=== PATIENT | male | born 1980 | race Caucasian/White ===

== ENCOUNTER 2018-07-17 12:34 | Observation (INO) | payer OTHER ==
[2018-07-17] MEDS ORDERED: BABY ASPIRIN 81 MG CHEW PO ONE (12:44)
[2018-07-17] MEDS ORDERED: BABY ASPIRIN 81 MG CHEW ONE (12:50)
--- NOTE | 2018-07-17 12:51 | ERPHSYRPT ---
- History of Present Illness Time Seen by Provider: 07/17/18 12:46 Historian: patient Exam Limitations: no limitations Physician History: 37-year-old white male with history of diabetes adult onset, kidney stones and hypercholesterolemia. Patient arrives with complaints of aching substernal chest pain radiating up to his neck and left arm began 3040 minutes while helping his boss move furniture around his boss's house. Patient states the pain was initially a 10 out of 10 it is now 2 out of 10 he states he is getting markedly better with rest. He states that he did have shortness of breath diaphoresis and nausea. Past medical history includes type 2 diabetes mellitus, kidney stones, hypercholesterolemia. Past surgical history includes cholecystectomy and surgery on his left index finger. Social history denies tobacco alcohol or illicit drug use. Timing/Duration: today (30-40 minutes prior to arrival) Activities at Onset: activity (Moving furniture around) Quality: aching Location: substernal Chest Pain Radiation: neck, arm (left arm) Severity of Pain-Max: moderate Severity of Pain-Current: mild Modifying Factors: Improves With: rest (pain is improved after rest) Associated Symptoms: nausea, shortness of breath, diaphoresis, No vomiting, No palpitations, No heartburn, No abdominal pain, No cough, No hurts to breathe, No chills, No fever, No fatigue, No weakness, No swelling/lump in chest, No syncope, No headache, No dizziness, No edema, No back pain Prior Chest Pain/Cardiac Workup: no prior chest pain Nitro Today/Relief: no nitro taken today Aspirin Treatment Today: 81 mg x 4, provided by ED Allergies/Adverse Reactions: No Known Drug Allergies Allergy (Verified 07/17/18 12:50) Home Medications: Pravastatin Sodium 10 mg PO DAILY 07/17/18 [History] - Review of Systems Constitutional: No Fever, No Chills Eyes: No Symptoms Ears, Nose, & Throat: No Symptoms Respiratory: No Cough, No Dyspnea Cardiac: Chest Pain, Other (diaphoresis) Abdominal/Gastrointestinal: Nausea, No Abdominal Pain, No Vomiting, No Diarrhea , No Constipation, No Hematemesis, No Hematochezia, No Melena Genitourinary Symptoms: No Dysuria Musculoskeletal: No Symptoms, No Back Pain, No Neck Pain Skin: No Rash Neurological: No Dizziness, No Focal Weakness, No Sensory Changes Psychological: No Symptoms Endocrine: No Symptoms All Other Systems: Reviewed and Negative - Past Medical History Cardiac History: High Cholesterol Endocrine Medical History: Diabetes Type II - Past Surgical History Gastrointestinal: Cholecystectomy Musculoskeletal: Other (left index finger surgery) - Nursing Vital Signs Nursing Vital Signs: Initial Vital Signs Temperature 97.6 F 07/17/18 12:37 Pulse Rate 77 07/17/18 12:37 Respiratory Rate 14 07/17/18 12:37 Blood Pressure 153/104 07/17/18 12:37 O2 Sat by Pulse Oximetry 98 07/17/18 12:37 Pain Scale Pain Intensity 3 - Physical Exam General Appearance: mild distress, alert, other (well-developed somewhat obese white male, alert oriented 3, pleasant and cooperative to examination) Eye Exam: PERRL/EOMI, eyes nml inspection Ears, Nose, Throat Exam: normal ENT inspection, moist mucous membranes Neck Exam: normal inspection, non-tender, supple, full range of motion Respiratory Exam: normal breath sounds, lungs clear, No respiratory distress Cardiovascular Exam: regular rate/rhythm, normal heart sounds, normal peripheral pulses, capillary refill <2 sec, No murmur, No friction rub, No gallop, No tachycardia, No bradycardia, No irregular, No capillary refill >3 sec , No edema Gastrointestinal/Abdomen Exam: soft, normal bowel sounds, No tenderness, No distention, No mass, No guarding, No rebound, No organomegaly Back Exam: normal inspection, No CVA tenderness, No vertebral tenderness Extremity Exam: normal inspection, normal range of motion Neurologic Exam: alert, oriented x 3, cooperative, documentation spec II-XII nml as tested, normal mood/affect, sensation nml, No motor deficits Skin Exam: normal color, warm, dry SpO2 Interpretation: normal - Course Nursing assessment & vital signs reviewed: Yes EKG Interpreted by Me: RATE (74 bpm), NORMAL AXIS, Other (EKG: Sinus rhythm, 74 bpm, normal axis, no acute ST or T wave changes, normal EKG) - Radiology Exams Chest X-ray Interpretation: Interpreted by me (no acute disease process noted) Ordered Tests: Active Orders 24 hr Category Date Time Status Accucheck STAT Care 07/17/18 12:52 Active Associate Data Scientist STAT Care 07/17/18 12:45 Active EKG-ER Only STAT Care 07/17/18 12:44 Active IV Insertion STAT Care 07/17/18 12:44 Active Pulse Oximetry (ED) STAT Care 07/17/18 12:44 Active CHEST 1 VIEW (PORTABLE) Stat Exams 07/17/18 12:45 Taken AMYLASE Routine Lab 07/17/18 12:50 Completed CBC W DIFF Stat Lab 07/17/18 12:50 Completed CMP Routine Lab 07/17/18 12:50 Completed D-DIMER QUANTITATION Stat Lab 07/17/18 12:50 Completed LIPASE Routine Lab 07/17/18 12:50 Completed PROTIME WITH INR Stat Lab 07/17/18 12:50 Completed PTT Stat Lab 07/17/18 12:50 Completed TROPONIN Q3H Lab 07/17/18 12:50 Completed TROPONIN Q3H Lab 07/17/18 15:45 Ordered TROPONIN Q3H Lab 07/17/18 18:45 Ordered TROPONIN Q3H Lab 07/17/18 21:45 Ordered TROPONIN Q3H Lab 07/18/18 00:45 Ordered Medication Summary Discontinued Medications Generic Name Dose Route Start Last Admin Trade Name Freq PRN Reason Stop Dose Admin Aspirin 324 mg 07/17/18 12:44 07/17/18 12:51 Baby Aspirin 81 Mg Chew PO 07/17/18 12:45 324 mg STAT ONE Administration Aspirin Confirm 07/17/18 12:50 Baby Aspirin 81 Mg Chew Administered 07/17/18 12:51 Dose 324 mg .ROUTE .STK-MED ONE Sodium Chloride 1,000 mls @ 999 mls/hr 07/17/18 13:22 Sodium Chloride 0.9% 1000 Ml IV 07/17/18 14:22 .Q1H1M STA Lab/Rad Data: Laboratory Result Diagrams 07/17/18 12:50 07/17/18 12:50 Laboratory Results 07/17/18 07/17/18 07/17/18 Range/Units 12:50 12:50 12:50 WBC 10.1 (4.0-10.5) K/mm3 RBC 5.26 (4.1-5.6) M/mm3 Hgb 14.8 (12.5-18.0) gm/dl Hct 45.6 (42-50) % MCV 86.7 (78-100) fl MCH 28.1 (26-32) pg MCHC 32.5 (32-36) g/dl RDW 13.6 (11.5-14.0) % Plt Count 194 (150-450) K/mm3 MPV 9.9 H (6-9.5) fl Gran % 52.0 (36.0-66.0) % Eos # (Auto) 0.20 (0-0.5) Absolute Lymphs (auto) 3.83 (1.0-4.6) Absolute Monos (auto) 0.79 (0.0-1.3) Lymphocytes % 38.0 (24.0-44.0) % Monocytes % 7.8 (0.0-12.0) % Eosinophils % 2.0 (0.00-5.0) % Basophils % 0.2 (0.0-0.4) % Absolute Granulocytes 5.23 (1.4-6.9) Basophils # 0.02 (0-0.4) PT 11.5 (8.83-12.87) SECONDS INR 0.99 (0.8-3.0) APTT 34.5 (24.1-36.1) SECONDS D-Dimer 286 (215-500) ng/mL Sodium 136 L (137-145) mmol/L Potassium 4.0 (3.5-5.1) mmol/L Chloride 103 (98-107) mmol/L Carbon Dioxide 25 (22-30) mmol/L Anion Gap 12.5 (5-15) MEQ/L BUN 16 (9-20) mg/dL Creatinine 0.83 (0.66-1.25) mg/dL Estimated GFR > 60.0 ML/MIN Glucose 162 H (74-106) mg/dL Calcium 9.2 (8.4-10.2) mg/dL Total Bilirubin 0.30 (0.2-1.3) mg/dL AST 41 (17-59) U/L ALT 64 H (0-50) U/L Alkaline Phosphatase 121 (38-126) U/L Troponin I 0.013 (0.000-0.034) ng/mL Serum Total Protein 7.1 (6.3-8.2) g/dL Albumin 4.3 (3.5-5.0) g/dL Amylase 69 (30-110) U/L Lipase 114 (23-300) U/L - Progress Progress: improved Air Movement: fair Progress Note: 07/17/18 13:31 37-year-old white male with history of diabetes mellitustype 2, hypercholesterolemia Patient arrives with complaint of 30-40 minutes of anterior chest pain substernal aching radiating to his neck and left arm associated with shortness of breath diaphoresis and nausea began while the patient was moving furniture at his boss's house. On arrival with rest patient was feeling better and had rated the pain at about 2 it is now going away. Patient arrives with an EKG normal sinus rhythm 74 bpm normal axis no acute ST or T wave changes are noted patient with normal d-dimer normal troponin chemistry is essentially normal with the exception of a mildly elevated glucose and a sodium of 136 chest x-ray is unremarkable. Patient does state that he has a very strong family history of heart problems he is feeling better. I've discussed the patient's case and the clinical and laboratory findings with Dr. Mejia will place patient on observation. Patient has been given 324 mg of aspirin here in the emergency room and is feeling better. . . - Departure Time of Disposition: 13:34 Departure Disposition: Observation Clinical Impression: Chest pain Qualifiers: Chest pain type: unspecified Qualified Code(s): R07.9 - Chest pain, unspecified Condition: Fair Critical Care Time: No
[2018-07-17 12:54] LABS: BASOPHIL % 0.2 % (0.0-0.4); Basophil (Absolute #) 0.02 (0-0.4); Granulocyte Absolute (ANC) 5.23 (1.4-6.9); Hematocrit 45.6 % (42-50); Hemoglobin 14.8 gm/dl (12.5-18.0); Lymphocyte (Absolute #) 3.83 (1.0-4.6); Mean Cell Volume 86.7 fl (78-100); Mean Corpuscular Hemoglobin 28.1 pg (26-32); Mean Corpuscular Hgb Concent. 32.5 g/dl (32-36); Mean Platelet Volume 9.9 fl (6-9.5); Monocyte (Absolute #) 0.79 (0.0-1.3); Monocytes % 7.8 % (0.0-12.0); Platelet Count 194 K/mm3 (150-450); Red Blood Count 5.26 M/mm3 (4.1-5.6); Red Cell Distribution Width 13.6 % (11.5-14.0); White Blood Count 10.1 K/mm3 (4.0-10.5)
[2018-07-17 13:04] LABS: INR 0.99 (0.8-3.0)
[2018-07-17 13:06] LABS: PTT 34.5 SECONDS (24.1-36.1)
[2018-07-17 13:19] LABS: ALBUMIN 4.3 g/dL (3.5-5.0); ALKALINE PHOSPHATASE 121 U/L (38-126); AMYLASE 69 U/L (30-110); ANION GAP 12.5 MEQ/L (5-15); BLOOD UREA NITROGEN 16 mg/dL (9-20); CHLORIDE 103 mmol/L (98-107); Calcium 9.2 mg/dL (8.4-10.2); Carbon Dioxide 25 mmol/L (22-30); Creatinine 1 0.83 mg/dL (0.66-1.25); Glucose 162 mg/dL (74-106); LIPASE 114 U/L (23-300); SGOT/AST 41 U/L (17-59); SGPT/ALT 64 U/L (0-50); SODIUM 136 mmol/L (137-145); TROPONIN 0.013 ng/mL (0.000-0.034); Total Protein 7.1 g/dL (6.3-8.2)
[2018-07-17] MEDS ORDERED: Sodium Chloride 0.9% 1000 ML 1,000 ML IV STA (13:22)
[2018-07-17] MEDS ORDERED: Sodium Chloride 0.9% 1000 ML 1,000 ML ONE (13:32)
[2018-07-17] MEDS ORDERED: Zofran 4 MG/2 ML VIAL IV PRN (14:18)
[2018-07-17] MEDS ORDERED: MORPHINE SULFATE 2 MG INJ IV PRN (14:18)
--- NOTE | 2018-07-17 18:03 | XRAY ---
Indication: Chest pain. Comparison: None Portable chest demonstrates normal heart, lungs, and bony thorax.
--- NOTE | 2018-07-17 19:18 | PCM.HP ---
History of Present Illness - Chief Complaint Chief Complaint: CHEST PAIN History of Present Illness: is a 37 year old male who presented to the ER after an acute onset of chest pain. His pain was a tight/sqeezing heaviness in the chest that started while moving furniture. He was diaphoretic and short of breath with the pain, it resolved with rest. He has no cardiac history, no recent illness. Has had a diagnosis of diabetes in the past and later told he was not a diabetic, he is obese and has an extensive family history of cardiac disease and a personal history of smoking tobacco. - Review of Systems Constitutional: No Fever, No Chills Respiratory: No Cough, No Short Of Breath Cardiac: Chest Pain Abdominal/Gastrointestinal: No Abdominal Pain, No Nausea, No Vomiting, No Diarrhea Genitourinary Symptoms: No Dysuria Skin: No Rash All Other Systems: Reviewed and Negative Medications & Allergies Home Medications: Home Medication List Pravastatin Sodium 10 mg PO HS 07/17/18 [History Confirmed 07/17/18] Allergies/Adverse Reactions: Allergies Allergy/AdvReac Type Severity Reaction Status Date / Time No Known Drug Allergies Allergy Verified 07/17/18 12:50 - Past Medical History Past Medical History: Yes Cardiac History: High Cholesterol Endocrine Medical History: Diabetes Type II - Past Surgical History Past Surgical History: Yes GI Surgical History: Cholecystectomy Musculskeletal Surgical Hx: Other Other Surgical History: finger reconstruction as a child - Social History Smoking Status: Former smoker Exposure to second hand smoke: No Alcohol: None Drug Use: none - Physical Exam Vital Signs: Vital Signs - 24 hr Temp Pulse Pulse Resp BP Pulse Ox 07/17/18 16:00 97.8 F 78 18 131/63 93 L 07/17/18 14:27 97.5 F 74 74 H 160/84 96 07/17/18 13:35 72 16 155/94 96 07/17/18 12:48 98 07/17/18 12:37 97.6 F 77 77 14 153/104 98 General Appearance: no apparent distress, alert, obese Neurologic Exam: alert, oriented x 3, cooperative, normal mood/affect, nml cerebellar function, nml station & gait, sensation nml, No motor deficits Respiratory Exam: normal breath sounds, lungs clear, No respiratory distress Cardiovascular Exam: regular rate/rhythm, normal heart sounds, normal peripheral pulses Gastrointestinal/Abdomen Exam: soft, normal bowel sounds, No tenderness, No mass Extremity Exam: normal inspection, normal range of motion, pelvis stable Skin Exam: normal color, warm, dry, No rash Results - Labs Lab/Micro Results: Accuchecks Accucheck Value: 221 Accucheck Value: 171 Lab Results-Last 24 Hours 07/17/18 07/17/18 07/17/18 Range/Units 12:35 12:50 12:50 WBC 10.1 (4.0-10.5) K/mm3 RBC 5.26 (4.1-5.6) M/mm3 Hgb 14.8 (12.5-18.0) gm/dl Hct 45.6 (42-50) % MCV 86.7 (78-100) fl MCH 28.1 (26-32) pg MCHC 32.5 (32-36) g/dl RDW 13.6 (11.5-14.0) % Plt Count 194 (150-450) K/mm3 MPV 9.9 H (6-9.5) fl Gran % 52.0 (36.0-66.0) % Eos # (Auto) 0.20 (0-0.5) Absolute Lymphs (auto) 3.83 (1.0-4.6) Absolute Monos (auto) 0.79 (0.0-1.3) Lymphocytes % 38.0 (24.0-44.0) % Monocytes % 7.8 (0.0-12.0) % Eosinophils % 2.0 (0.00-5.0) % Basophils % 0.2 (0.0-0.4) % Absolute Granulocytes 5.23 (1.4-6.9) Basophils # 0.02 (0-0.4) PT 11.5 (8.83-12.87) SECONDS INR 0.99 (0.8-3.0) APTT 34.5 (24.1-36.1) SECONDS D-Dimer 286 (215-500) ng/mL Sodium (137-145) mmol/L Potassium (3.5-5.1) mmol/L Chloride (98-107) mmol/L Carbon Dioxide (22-30) mmol/L Anion Gap (5-15) MEQ/L BUN (9-20) mg/dL Creatinine (0.66-1.25) mg/dL Estimated GFR ML/MIN Glucose (74-106) mg/dL Hemoglobin A1c 7.71 H (4.5-6.0) % Calcium (8.4-10.2) mg/dL Total Bilirubin (0.2-1.3) mg/dL AST (17-59) U/L ALT (0-50) U/L Alkaline Phosphatase (38-126) U/L Troponin I (0.000-0.034) ng/mL Serum Total Protein (6.3-8.2) g/dL Albumin (3.5-5.0) g/dL Amylase (30-110) U/L Lipase (23-300) U/L 07/17/18 07/17/18 Range/Units 12:50 15:40 WBC (4.0-10.5) K/mm3 RBC (4.1-5.6) M/mm3 Hgb (12.5-18.0) gm/dl Hct (42-50) % MCV (78-100) fl MCH (26-32) pg MCHC (32-36) g/dl RDW (11.5-14.0) % Plt Count (150-450) K/mm3 MPV (6-9.5) fl Gran % (36.0-66.0) % Eos # (Auto) (0-0.5) Absolute Lymphs (auto) (1.0-4.6) Absolute Monos (auto) (0.0-1.3) Lymphocytes % (24.0-44.0) % Monocytes % (0.0-12.0) % Eosinophils % (0.00-5.0) % Basophils % (0.0-0.4) % Absolute Granulocytes (1.4-6.9) Basophils # (0-0.4) PT (8.83-12.87) SECONDS INR (0.8-3.0) APTT (24.1-36.1) SECONDS D-Dimer (215-500) ng/mL Sodium 136 L (137-145) mmol/L Potassium 4.0 (3.5-5.1) mmol/L Chloride 103 (98-107) mmol/L Carbon Dioxide 25 (22-30) mmol/L Anion Gap 12.5 (5-15) MEQ/L BUN 16 (9-20) mg/dL Creatinine 0.83 (0.66-1.25) mg/dL Estimated GFR > 60.0 ML/MIN Glucose 162 H (74-106) mg/dL Hemoglobin A1c (4.5-6.0) % Calcium 9.2 (8.4-10.2) mg/dL Total Bilirubin 0.30 (0.2-1.3) mg/dL AST 41 (17-59) U/L ALT 64 H (0-50) U/L Alkaline Phosphatase 121 (38-126) U/L Troponin I 0.013 0.130 H* (0.000-0.034) ng/mL Serum Total Protein 7.1 (6.3-8.2) g/dL Albumin 4.3 (3.5-5.0) g/dL Amylase 69 (30-110) U/L Lipase 114 (23-300) U/L Accuchecks Accucheck Value: 221 Accucheck Value: 171 - Radiology Impressions Radiology Exams & Impressions: Radiology Procedures Category Date Time Status CHEST 1 VIEW (PORTABLE) Stat Exams 07/17/18 12:45 Completed - Other Procedures and Tests Respiratory Therapy 07/17/18 20:00 EKG Q8H 07/18/18 05:00 EKG DAILY 07/19/18 05:00 EKG DAILY 07/20/18 05:00 EKG DAILY Assessment/Plan (1) Chest pain Current Visit: Yes Status: Acute Qualifiers: Chest pain type: unspecified Qualified Code(s): R07.9 - Chest pain, unspecified Assessment & Plan: EKG shows no obvious current of injury, there is some minor suspicious ST change present V1,2,3 with no reciprocal changes. patient with multiple risk factors and elevated troponin. I discussed the case with Dr Andrew Marroquin recreation counselor for [facility] and he is aware, advised to continue current therapy as discussed. if any clinical status changes or signficant further elevation of troponin will transfer to [place] under his care. Code(s): R07.9 - CHEST PAIN, UNSPECIFIED (2) Diabetes mellitus Current Visit: Yes Status: Acute Assessment & Plan: will add low dose insulin sliding scale coverage, low dose tan inhibitor Code(s): E11.9 - TYPE 2 DIABETES MELLITUS WITHOUT COMPLICATIONS (3) Hyperlipidemia Current Visit: Yes Status: Acute Code(s): E78.5 - HYPERLIPIDEMIA, UNSPECIFIED
[2018-07-17] MEDS ORDERED: ENOXAPARIN SODIUM SQ ONE (19:28)
[2018-07-17] MEDS ORDERED: NovoLOG Insulin SQ PRN (19:34)
[2018-07-17] MEDS: Coreg 3.125 MG PO SCH (21:01)
[2018-07-17] MEDS: Sodium Chloride 0.9% 10 ML FLUSH Syringe IV SCH (21:04)
[2018-07-17] MEDS ORDERED: Ecotrin 325 MG PO SCH (22:00)
[2018-07-17] MEDS ORDERED: Zocor 10MG PO SCH (22:00)
[2018-07-17] MEDS ORDERED: ZOCOR 20MG PO SCH (22:00)
[2018-07-18 01:30] LABS: BASOPHIL % 0.3 % (0.0-0.4); Basophil (Absolute #) 0.03 (0-0.4); Eosinophil % 2.1 % (0.00-5.0); Eosinophil (Absolute #) 0.25 (0-0.5); Granulocyte Absolute (ANC) 4.69 (1.4-6.9); Granulocytes % 39.1 % (36.0-66.0); Hematocrit 44.8 % (42-50); Hemoglobin 14.5 gm/dl (12.5-18.0); Lymphocyte (Absolute #) 6.29 (1.0-4.6); Lymphocytes % 52.6 % (24.0-44.0); Mean Cell Volume 86.8 fl (78-100); Mean Corpuscular Hemoglobin 28.1 pg (26-32); Mean Corpuscular Hgb Concent. 32.4 g/dl (32-36); Monocytes % 5.9 % (0.0-12.0); Platelet Count 199 K/mm3 (150-450); Red Blood Count 5.16 M/mm3 (4.1-5.6); Red Cell Distribution Width 13.6 % (11.5-14.0)
[2018-07-18 01:44] LABS: ALKALINE PHOSPHATASE 109 U/L (38-126); ANION GAP 11.4 MEQ/L (5-15); BLOOD UREA NITROGEN 15 mg/dL (9-20); CHLORIDE 106 mmol/L (98-107); Calcium 8.9 mg/dL (8.4-10.2); Carbon Dioxide 24 mmol/L (22-30); Creatinine 1 0.79 mg/dL (0.66-1.25); Glucose 104 mg/dL (74-106); Potassium 3.8 mmol/L (3.5-5.1); SGOT/AST 36 U/L (17-59); SGPT/ALT 60 U/L (0-50); SODIUM 138 mmol/L (137-145); Total Protein 6.7 g/dL (6.3-8.2)
[2018-07-18 04:16] VITALS: O2SAT 95
[2018-07-18] MEDS: Sodium Chloride 0.9% 10 ML FLUSH Syringe IV SCH (05:42)
[2018-07-18 06:28] LABS: Risk Ratio 9.1
[2018-07-18 07:29] VITALS: BP 111/62; PULSE 68
--- NOTE | 2018-07-18 08:15 | PCM.DS ---
Discharge Summary Date of Admission: 07/17/18 14:16 Admitting Physician: NUHA KERR Primary Care Provider: FIOR SMITH Allergies Allergies No Known Drug Allergies Allergy (Verified 07/17/18 12:50) Hospital Summary - Hospital Course Hospital Course: patient was admitted following an episode of chest pain that occurred with exertion while moving furniture. he developed a minimal elevation of troponin but had no chest pain after admission. multiple risk factors including newly discovered diabetes. - Vitals & Intake/Output Vital Signs: Vital Signs Temperature 98.1 F 07/18/18 07:28 Pulse Rate 68 07/18/18 07:28 Respiratory Rate 18 07/18/18 07:28 Blood Pressure 111/62 07/18/18 07:28 O2 Sat by Pulse Oximetry 95 07/18/18 07:28 Intake & Output: Intake & Output 07/15/18 07/16/18 07/17/18 07/18/18 11:59 11:59 11:59 11:59 Intake Total 840 Balance 840 Weight 120.9 kg - Lab Result Diagrams: 07/18/18 01:06 07/18/18 01:06 Lab Results-Last 24 Hrs: Accuchecks Date 07/17/18 Time 21:00 Accucheck Value: 161 Accucheck Value: 221 Accucheck Value: 171 Lab Results-Last 24 Hours 07/17/18 07/17/18 07/17/18 Range/Units 12:35 12:50 12:50 WBC 10.1 (4.0-10.5) K/mm3 RBC 5.26 (4.1-5.6) M/mm3 Hgb 14.8 (12.5-18.0) gm/dl Hct 45.6 (42-50) % MCV 86.7 (78-100) fl MCH 28.1 (26-32) pg MCHC 32.5 (32-36) g/dl RDW 13.6 (11.5-14.0) % Plt Count 194 (150-450) K/mm3 MPV 9.9 H (6-9.5) fl Gran % 52.0 (36.0-66.0) % Eos # (Auto) 0.20 (0-0.5) Absolute Lymphs (auto) 3.83 (1.0-4.6) Absolute Monos (auto) 0.79 (0.0-1.3) Lymphocytes % 38.0 (24.0-44.0) % Monocytes % 7.8 (0.0-12.0) % Eosinophils % 2.0 (0.00-5.0) % Basophils % 0.2 (0.0-0.4) % Absolute Granulocytes 5.23 (1.4-6.9) Basophils # 0.02 (0-0.4) PT 11.5 (8.83-12.87) SECONDS INR 0.99 (0.8-3.0) APTT 34.5 (24.1-36.1) SECONDS D-Dimer 286 (215-500) ng/mL Sodium (137-145) mmol/L Potassium (3.5-5.1) mmol/L Chloride (98-107) mmol/L Carbon Dioxide (22-30) mmol/L Anion Gap (5-15) MEQ/L BUN (9-20) mg/dL Creatinine (0.66-1.25) mg/dL Estimated GFR ML/MIN Glucose (74-106) mg/dL Hemoglobin A1c 7.71 H (4.5-6.0) % Calcium (8.4-10.2) mg/dL Total Bilirubin (0.2-1.3) mg/dL AST (17-59) U/L ALT (0-50) U/L Alkaline Phosphatase (38-126) U/L Troponin I (0.000-0.034) ng/mL Serum Total Protein (6.3-8.2) g/dL Albumin (3.5-5.0) g/dL Triglycerides (30-150) mg/dL Cholesterol (50-200) mg/dL LDL Cholesterol (30-100) mg/dL HDL Cholesterol (40-60) mg/dL Heart Disease Risk Ratio Amylase (30-110) U/L Lipase (23-300) U/L 07/17/18 07/17/18 07/17/18 Range/Units 12:50 15:40 18:37 WBC (4.0-10.5) K/mm3 RBC (4.1-5.6) M/mm3 Hgb (12.5-18.0) gm/dl Hct (42-50) % MCV (78-100) fl MCH (26-32) pg MCHC (32-36) g/dl RDW (11.5-14.0) % Plt Count (150-450) K/mm3 MPV (6-9.5) fl Gran % (36.0-66.0) % Eos # (Auto) (0-0.5) Absolute Lymphs (auto) (1.0-4.6) Absolute Monos (auto) (0.0-1.3) Lymphocytes % (24.0-44.0) % Monocytes % (0.0-12.0) % Eosinophils % (0.00-5.0) % Basophils % (0.0-0.4) % Absolute Granulocytes (1.4-6.9) Basophils # (0-0.4) PT (8.83-12.87) SECONDS INR (0.8-3.0) APTT (24.1-36.1) SECONDS D-Dimer (215-500) ng/mL Sodium 136 L (137-145) mmol/L Potassium 4.0 (3.5-5.1) mmol/L Chloride 103 (98-107) mmol/L Carbon Dioxide 25 (22-30) mmol/L Anion Gap 12.5 (5-15) MEQ/L BUN 16 (9-20) mg/dL Creatinine 0.83 (0.66-1.25) mg/dL Estimated GFR > 60.0 ML/MIN Glucose 162 H (74-106) mg/dL Hemoglobin A1c (4.5-6.0) % Calcium 9.2 (8.4-10.2) mg/dL Total Bilirubin 0.30 (0.2-1.3) mg/dL AST 41 (17-59) U/L ALT 64 H (0-50) U/L Alkaline Phosphatase 121 (38-126) U/L Troponin I 0.013 0.130 H* 0.144 H* (0.000-0.034) ng/mL Serum Total Protein 7.1 (6.3-8.2) g/dL Albumin 4.3 (3.5-5.0) g/dL Triglycerides (30-150) mg/dL Cholesterol (50-200) mg/dL LDL Cholesterol (30-100) mg/dL HDL Cholesterol (40-60) mg/dL Heart Disease Risk Ratio Amylase 69 (30-110) U/L Lipase 114 (23-300) U/L 07/17/18 07/18/18 07/18/18 Range/Units 21:58 01:06 01:06 WBC 12.0 H (4.0-10.5) K/mm3 RBC 5.16 (4.1-5.6) M/mm3 Hgb 14.5 (12.5-18.0) gm/dl Hct 44.8 (42-50) % MCV 86.8 (78-100) fl MCH 28.1 (26-32) pg MCHC 32.4 (32-36) g/dl RDW 13.6 (11.5-14.0) % Plt Count 199 (150-450) K/mm3 MPV 10.0 H (6-9.5) fl Gran % 39.1 (36.0-66.0) % Eos # (Auto) 0.25 (0-0.5) Absolute Lymphs (auto) 6.29 H (1.0-4.6) Absolute Monos (auto) 0.70 (0.0-1.3) Lymphocytes % 52.6 H (24.0-44.0) % Monocytes % 5.9 (0.0-12.0) % Eosinophils % 2.1 (0.00-5.0) % Basophils % 0.3 (0.0-0.4) % Absolute Granulocytes 4.69 (1.4-6.9) Basophils # 0.03 (0-0.4) PT (8.83-12.87) SECONDS INR (0.8-3.0) APTT (24.1-36.1) SECONDS D-Dimer (215-500) ng/mL Sodium (137-145) mmol/L Potassium (3.5-5.1) mmol/L Chloride (98-107) mmol/L Carbon Dioxide (22-30) mmol/L Anion Gap (5-15) MEQ/L BUN (9-20) mg/dL Creatinine (0.66-1.25) mg/dL Estimated GFR ML/MIN Glucose (74-106) mg/dL Hemoglobin A1c (4.5-6.0) % Calcium (8.4-10.2) mg/dL Total Bilirubin (0.2-1.3) mg/dL AST (17-59) U/L ALT (0-50) U/L Alkaline Phosphatase (38-126) U/L Troponin I 0.120 H* 0.103 H* (0.000-0.034) ng/mL Serum Total Protein (6.3-8.2) g/dL Albumin (3.5-5.0) g/dL Triglycerides (30-150) mg/dL Cholesterol (50-200) mg/dL LDL Cholesterol (30-100) mg/dL HDL Cholesterol (40-60) mg/dL Heart Disease Risk Ratio Amylase (30-110) U/L Lipase (23-300) U/L 07/18/18 07/18/18 Range/Units 01:06 05:35 WBC (4.0-10.5) K/mm3 RBC (4.1-5.6) M/mm3 Hgb (12.5-18.0) gm/dl Hct (42-50) % MCV (78-100) fl MCH (26-32) pg MCHC (32-36) g/dl RDW (11.5-14.0) % Plt Count (150-450) K/mm3 MPV (6-9.5) fl Gran % (36.0-66.0) % Eos # (Auto) (0-0.5) Absolute Lymphs (auto) (1.0-4.6) Absolute Monos (auto) (0.0-1.3) Lymphocytes % (24.0-44.0) % Monocytes % (0.0-12.0) % Eosinophils % (0.00-5.0) % Basophils % (0.0-0.4) % Absolute Granulocytes (1.4-6.9) Basophils # (0-0.4) PT (8.83-12.87) SECONDS INR (0.8-3.0) APTT (24.1-36.1) SECONDS D-Dimer (215-500) ng/mL Sodium 138 (137-145) mmol/L Potassium 3.8 (3.5-5.1) mmol/L Chloride 106 (98-107) mmol/L Carbon Dioxide 24 (22-30) mmol/L Anion Gap 11.4 (5-15) MEQ/L BUN 15 (9-20) mg/dL Creatinine 0.79 (0.66-1.25) mg/dL Estimated GFR > 60.0 ML/MIN Glucose 104 (74-106) mg/dL Hemoglobin A1c (4.5-6.0) % Calcium 8.9 (8.4-10.2) mg/dL Total Bilirubin 0.30 (0.2-1.3) mg/dL AST 36 (17-59) U/L ALT 60 H (0-50) U/L Alkaline Phosphatase 109 (38-126) U/L Troponin I (0.000-0.034) ng/mL Serum Total Protein 6.7 (6.3-8.2) g/dL Albumin 4.0 (3.5-5.0) g/dL Triglycerides 416 H (30-150) mg/dL Cholesterol 210 H (50-200) mg/dL LDL Cholesterol 127 H (30-100) mg/dL HDL Cholesterol 23 L (40-60) mg/dL Heart Disease Risk Ratio 9.1 Amylase (30-110) U/L Lipase (23-300) U/L Micro Results-Entire Visit: Accuchecks Date 07/17/18 Time 21:00 Accucheck Value: 161 Accucheck Value: 221 Accucheck Value: 171 - Radiology Exams Ordered Rad Exams-Entire Visit: Radiology Procedures Category Date Time Status CHEST 1 VIEW (PORTABLE) Stat Exams 07/17/18 12:45 Completed - Procedures and Test Procedures and Tests throughout Hospitalization: Therapy Orders & Screens 07/17/18 20:00 EKG Q8H Comment: Diagnosis: CHEST PAIN 07/18/18 05:00 EKG DAILY Comment: Diagnosis: CHEST PAIN 07/19/18 05:00 EKG DAILY Comment: Diagnosis: CHEST PAIN 07/20/18 05:00 EKG DAILY Comment: Diagnosis: CHEST PAIN Discharge Exam General Appearance: no apparent distress, alert, obese Neurologic Exam: alert, oriented x 3 Skin Exam: normal color, warm, dry Neck Exam: normal inspection, non-tender, supple, full range of motion Respiratory Exam: normal breath sounds, lungs clear, No respiratory distress Cardiovascular Exam: regular rate/rhythm, normal heart sounds Gastrointestinal/Abdomen Exam: soft, No tenderness, No mass Extremity Exam: normal inspection, normal range of motion Final Diagnosis/Problem List - Final Discharge Diagnosis/Problem (1) Chest pain Current Visit: Yes Status: Acute Assessment & Plan: case has been discussed with Dr Thorpe of [facility], since patient has been pain-free, has no acute EKG findings and minimally elevated troponin will continue beta sudhakar, aspirin, statin and treat diabetes. patient will f/ u with him as an outpatient. strongly encouraged complete cessation of smoking (2) Diabetes mellitus Current Visit: Yes Status: Acute Assessment & Plan: home on po metformin, a1c 7.7% diagnostic of type 2 diabetes (3) Hyperlipidemia Current Visit: Yes Status: Acute Assessment & Plan: change from pravachol to atorvastatin, moderate intensity statin indicated with lipid profile and multiple risk factors - Discharge Disposition: Home, Self-Care Condition: Good Prescriptions: New Atorvastatin Calcium 40 mg PO DAILY #30 tablet Carvedilol 3.125 mg [Coreg 3.125 MG] 3.125 mg PO BID #60 tablet Aspirin EC 81 mg [Ecotrin 81 mg] 81 mg PO DAILY #30 tablet.ec Metformin HCl 500 mg PO BID #60 tablet Discontinued Pravastatin Sodium 10 mg PO HS Follow up with: FIOR SMITH NP [Primary Care Provider] - 1 Week TONYA THORPE MD [NON-STAFF PHY W/O PRIVILEGES] - 1 Week
[2018-07-18] MEDS: Coreg 3.125 MG PO SCH (09:33)
[2018-07-18] MEDS ORDERED: ECOTRIN 81 MG PO SCH (10:00)
[2018-07-18] MEDS ORDERED: Zestril 5 MG PO SCH (10:00)
== END 2018-07-18 10:16 | disposition home or self-care (01) ==
LOC: ED 12:34 → MED SURG 14:16
PROVIDERS: ADMIT Family Medicine; ATTEND Family Medicine
DX: R07.9 Chest pain, unspecified (principal); E11.9 Type 2 diabetes mellitus without complications; Z79.4 Long term (current) use of insulin; E78.5 Hyperlipidemia, unspecified
CPT/HCPCS: 36000; 36415; 71045; 80053; 80061; 82150; 82962; 83036; 83690; 83721; 84484; 85025; 85379; 85610; 85730; 93005; 93041; 93268; 96360; 99285; J1650; A9270-GY; G0378

== ENCOUNTER 2020-02-23 20:47 | Emergency (ER) | payer OTHER ==
--- NOTE | 2020-02-23 21:33 | ERPHSYRPT ---
- History of Present Illness Time Seen by Provider: 02/23/20 21:00 Historian: patient Patient Subjective Stated Complaint: pt states that numbness began thursday, pt states that he called bottle house pumper and bottle house pumper advise to come and get checked out, pt states that he has a stent in the LAD, pt states that numbness starts at shoulder and travels down to hand, pt states that numbness is getting worse Triage Nursing Assessment: pt ambulated into the er, pt is axo x3, pt has hx of [place], c/o numbness to rt hand and rt arm, strengths equal bilateral, pupils 3 mm and PERRL, NIH 0, clear lung sounds, vitals wnl Physician History: Patient is a 39-year-old male with a history of LAD cardiac stent placed 1.5 years ago presents to our ED with numbness and tingling of his right arm for the past 5 days. Patient had a cardiac stress test approximately 2 months ago. At that time patient was experiencing the same symptoms. Patient called his ca rdiologist, Dr. Marroquin who advised patient come to our ED for evaluation. Symptoms are intermittent. No specific worsening or improving factors. No neck pain. No nausea vomiting or diaphoresis. Symptoms are moderate in intensity. Patient advises staff that at the time of this catheterization 1.5 years ago his other coronary arteries were approximately 70% obstructed. No fever. No cough. Patient voices no other complaints at this time. Patient is currently on Brilinta. However he has not been taking his blood pressure medication as he ran out. Timing/Duration: day(s) (5) Activities at Onset: other (Symptoms occur intermittently at rest and during activity.) Quality: aching Location: other (Symptoms occur at the right) Chest Pain Radiation: no radiation ( upper extremity.) Severity of Pain-Max: moderate Severity of Pain-Current: mild Modifying Factors: Improves With: nothing Associated Symptoms: No nausea, No vomiting, No palpitations, No heartburn, No shortness of breath, No hurts to breathe, No chills, No fatigue, No dizziness Nitro Today/Relief: no nitro taken today Aspirin Treatment Today: no aspirin today Allergies/Adverse Reactions: clopidogrel [From Plavix] Allergy (Mild, Verified 02/23/20 21:26) Itching Home Medications: Empagliflozin/Metformin HCl [Synjardy Xr 25-1,000 mg Tablet] 1 tab PO DAILY 02/23/20 [History] Ezetimibe 10 mg PO DAILY 02/23/20 [History] Lisinopril/Hydrochlorothiazide [Lisinopril-Hctz 20-12.5 mg Tab] 1 tab PO DAILY 02/23/20 [History] Semaglutide [Ozempic] 1 mg SQ WEEKLY 02/23/20 [History] Ticagrelor [Brilinta] 60 mg PO BID 02/23/20 [History] Urea 1 unit TOP BID 02/23/20 [History] Hx Tetanus, Diphtheria Vaccination/Date Given: No (unknown) Hx Influenza Vaccination/Date Given: No Hx Pneumococcal Vaccination/Date Given: No Travel Risk - International Travel Have you traveled outside of the country in past 3 weeks: No - Coronavirus Screening Are you exhibiting any of the following symptoms?: No Close contact with a COVID-19 positive Pt in past 14-21 Days: No - Review of Systems Constitutional: No Symptoms, No Fever, No Chills Eyes: No Symptoms Ears, Nose, & Throat: No Symptoms Respiratory: No Symptoms, No Cough, No Dyspnea Cardiac: No Symptoms, No Chest Pain, No Edema, No Syncope Abdominal/Gastrointestinal: No Symptoms, No Abdominal Pain, No Nausea, No Vomiting, No Diarrhea Genitourinary Symptoms: No Symptoms, No Dysuria Musculoskeletal: No Symptoms, No Back Pain, No Neck Pain Skin: No Symptoms, No Rash Neurological: No Symptoms, No Dizziness, No Focal Weakness, No Sensory Changes Psychological: No Symptoms Endocrine: No Symptoms Hematologic/Lymphatic: No Symptoms Immunological/Allergic: No Symptoms All Other Systems: Reviewed and Negative - Past Medical History Pertinent Past Medical History: Yes Cardiac History: High Cholesterol, Hypertension, Myocardial Infarction ([place]) Endocrine Medical History: Diabetes Type II - Past Surgical History Past Surgical History: Yes Cardiac: Cardiac Catheterization, Cardiac Stent Gastrointestinal: Cholecystectomy Musculoskeletal: Other Other Surgical History: finger reconstruction as a child - Social History Smoking Status: Former smoker Exposure to second hand smoke: No Drug Use: none Patient Lives Alone: No - Nursing Vital Signs Nursing Vital Signs: Initial Vital Signs Temperature 98.3 F 02/23/20 20:55 Pulse Rate 85 02/23/20 20:55 Respiratory Rate 16 02/23/20 20:55 Blood Pressure 135/83 02/23/20 20:55 O2 Sat by Pulse Oximetry 99 07/09/20 20:55 Pain Scale Pain Intensity 0 - Physical Exam General Appearance: no apparent distress, alert Eye Exam: PERRL/EOMI, eyes nml inspection Ears, Nose, Throat Exam: normal ENT inspection, moist mucous membranes Neck Exam: normal inspection, non-tender, supple, full range of motion Respiratory Exam: normal breath sounds, lungs clear, No respiratory distress Cardiovascular Exam: regular rate/rhythm, normal heart sounds Gastrointestinal/Abdomen Exam: soft, normal bowel sounds, No tenderness, No mass Back Exam: normal inspection, normal range of motion, No CVA tenderness, No vertebral tenderness Extremity Exam: normal inspection, normal range of motion Neurologic Exam: alert, oriented x 3, cooperative, normal mood/affect, sensation nml, No motor deficits Skin Exam: normal color, warm, dry SpO2 Interpretation: normal SpO2: 99 O2 Delivery: Room Air - Course Nursing assessment & vital signs reviewed: Yes EKG Interpreted by Me: RATE (82), Sinus Rhythm, NORMAL AXIS, NORMAL INTERVALS - Radiology Exams Chest X-ray Interpretation: Interpreted by me (No infiltrate no effusion normal bony thorax normal cardiac silhouette no pneumothorax negative chest x-ray.) Ordered Tests: Active Orders 24 hr Category Date Time Status Javascript Software Engineer STAT Care 02/23/20 21:30 Active EKG-ER Only STAT Care 02/23/20 21:29 Active IV Insertion STAT Care 02/23/20 21:29 Active Pulse Oximetry (ED) STAT Care 02/23/20 21:29 Active CHEST 1 VIEW (PORTABLE) Stat Exams 02/23/20 21:30 Taken CBC W DIFF Stat Lab 02/23/20 21:20 Completed CMP Stat Lab 02/23/20 21:20 Completed MAGNESIUM Stat Lab 02/23/20 21:20 Completed TROPONIN Q3H Lab 02/23/20 21:20 Completed TROPONIN Q3H Lab 02/24/20 00:05 Completed TROPONIN Q3H Lab 02/24/20 03:30 Ordered TROPONIN Q3H Lab 02/24/20 06:30 Ordered TROPONIN Q3H Lab 02/24/20 09:30 Ordered UA W/RFX UR CULTURE Stat Lab 02/23/20 21:40 Completed Urine Triage Profile Stat Lab 02/23/20 21:40 Completed Medication Summary Discontinued Medications Generic Name Dose Route Start Last Admin Trade Name Freq PRN Reason Stop Dose Admin Aspirin 324 mg 02/23/20 21:37 02/23/20 21:44 Baby Aspirin 81 Mg Chew PO 02/23/20 21:38 243 mg STAT ONE Administration Lab/Rad Data: Laboratory Result Diagrams 02/23/20 21:20 02/23/20 21:20 Laboratory Results 02/24/20 02/23/20 02/23/20 Range/Units 00:05 21:40 21:40 WBC (4.0-10.5) K/mm3 RBC (4.1-5.6) M/mm3 Hgb (12.5-18.0) gm/dl Hct (42-50) % MCV (78-100) fl MCH (26-32) pg MCHC (32-36) g/dl RDW (11.5-14.0) % Plt Count (150-450) K/mm3 MPV (7.5-11.0) fl Gran % (36.0-66.0) % Eos # (Auto) (0-0.5) Absolute Lymphs (auto) (1.0-4.6) Absolute Monos (auto) (0.0-1.3) Lymphocytes % (24.0-44.0) % Monocytes % (0.0-12.0) % Eosinophils % (0.00-5.0) % Basophils % (0.0-0.4) % Absolute Granulocytes (1.4-6.9) Basophils # (0-0.4) Sodium (137-145) mmol/L Potassium (3.5-5.1) mmol/L Chloride (98-107) mmol/L Carbon Dioxide (22-30) mmol/L Anion Gap (5-15) MEQ/L BUN (9-20) mg/dL Creatinine (0.66-1.25) mg/dL Estimated GFR ML/MIN Glucose (74-106) mg/dL Calcium (8.4-10.2) mg/dL Magnesium (1.6-2.3) mg/dL Total Bilirubin (0.2-1.3) mg/dL AST (17-59) U/L ALT (0-50) U/L Alkaline Phosphatase (38-126) U/L Troponin I < 0.012 (0.000-0.034) ng/mL Serum Total Protein (6.3-8.2) g/dL Albumin (3.5-5.0) g/dL Urine Color YELLOW (YELLOW) Urine Appearance CLEAR (CLEAR) Urine pH 5.0 (5-6) Ur Specific [place] 1.035 (1.005-1.025) Urine Protein NEGATIVE (Negative) Urine Ketones NEGATIVE (NEGATIVE) Urine Blood SMALL (0-5) Tomer/ul Urine Nitrite NEGATIVE (NEGATIVE) Urine Bilirubin NEGATIVE (NEGATIVE) Urine Urobilinogen NEGATIVE (0-1) mg/dL Ur Leukocyte Esterase NEGATIVE (NEGATIVE) Urine WBC (Auto) NONE (0-5) /HPF Urine RBC (Auto) NONE (0-2) /HPF U Epithel Cells (Auto) NONE (FEW) /HPF Urine Bacteria (Auto) NONE (NEGATIVE) /HPF Urine Culture Reflexed NO (NO) Urine Glucose >=500 (NEGATIVE) mg/dL Urine Opiates Level NEGATIVE (NEGATIVE) Ur Methadone NEGATIVE (NEGATIVE) Urine Barbiturates NEGATIVE (NEGATIVE) Ur Phencyclidine (PCP) NEGATIVE (NEGATIVE) Urine Amphetamine NEGATIVE (NEGATIVE) U Benzodiazepine Level NEGATIVE (NEGATIVE) Urine Cocaine NEGATIVE (NEGATIVE) Urine Marijuana (THC) NEGATIVE (NEGATIVE) 02/23/20 02/23/20 02/23/20 Range/Units 21:20 21:20 21:20 WBC 10.2 (4.0-10.5) K/mm3 RBC 5.22 (4.1-5.6) M/mm3 Hgb 14.8 (12.5-18.0) gm/dl Hct 47.3 (42-50) % MCV 90.6 (78-100) fl MCH 28.4 (26-32) pg MCHC 31.3 L (32-36) g/dl RDW 14.6 H (11.5-14.0) % Plt Count 192 (150-450) K/mm3 MPV 9.9 (7.5-11.0) fl Gran % 49.7 (36.0-66.0) % Eos # (Auto) 0.26 (0-0.5) Absolute Lymphs (auto) 4.16 (1.0-4.6) Absolute Monos (auto) 0.70 (0.0-1.3) Lymphocytes % 40.7 (24.0-44.0) % Monocytes % 6.8 (0.0-12.0) % Eosinophils % 2.5 (0.00-5.0) % Basophils % 0.3 (0.0-0.4) % Absolute Granulocytes 5.07 (1.4-6.9) Basophils # 0.03 (0-0.4) Sodium 143 (137-145) mmol/L Potassium 3.5 (3.5-5.1) mmol/L Chloride 111 H (98-107) mmol/L Carbon Dioxide 23 (22-30) mmol/L Anion Gap 12.4 (5-15) MEQ/L BUN 15 (9-20) mg/dL Creatinine 0.81 (0.66-1.25) mg/dL Estimated GFR > 60.0 ML/MIN Glucose 122 H (74-106) mg/dL Calcium 9.3 (8.4-10.2) mg/dL Magnesium 2.1 (1.6-2.3) mg/dL Total Bilirubin 0.70 (0.2-1.3) mg/dL AST 25 (17-59) U/L ALT 30 (0-50) U/L Alkaline Phosphatase 104 (38-126) U/L Troponin I < 0.012 (0.000-0.034) ng/mL Serum Total Protein 7.1 (6.3-8.2) g/dL Albumin 4.2 (3.5-5.0) g/dL Urine Color (YELLOW) Urine Appearance (CLEAR) Urine pH (5-6) Ur Specific [place] (1.005-1.025) Urine Protein (Negative) Urine Ketones (NEGATIVE) Urine Blood (0-5) Tomer/ul Urine Nitrite (NEGATIVE) Urine Bilirubin (NEGATIVE) Urine Urobilinogen (0-1) mg/dL Ur Leukocyte Esterase (NEGATIVE) Urine WBC (Auto) (0-5) /HPF Urine RBC (Auto) (0-2) /HPF U Epithel Cells (Auto) (FEW) /HPF Urine Bacteria (Auto) (NEGATIVE) /HPF Urine Culture Reflexed (NO) Urine Glucose (NEGATIVE) mg/dL Urine Opiates Level (NEGATIVE) Ur Methadone (NEGATIVE) Urine Barbiturates (NEGATIVE) Ur Phencyclidine (PCP) (NEGATIVE) Urine Amphetamine (NEGATIVE) U Benzodiazepine Level (NEGATIVE) Urine Cocaine (NEGATIVE) Urine Marijuana (THC) (NEGATIVE) - Progress Progress: improved Air Movement: good Progress Note: 02/24/20 00:57 Patient reassessed. He is currently asymptomatic. Work-up essentially negative. Patient was looking towards his right shoulder over towards the monitor and observe that motion of his neck reproduces symptoms in his right upper extremity. It is possible that patient's right upper extremity numbness and tingling may be cervical radiculopathy not cardiac in origin. Case discussed with Dr. Radha Marroquin(his bottle house pumper) is partner who feels that patient is appropriate for discharge. Patient requesting discharge. Plan of care discussed with patient. He was advised to follow-up with his primary care doctor within 48 hours for reevaluation. Blood Culture(s) Obtained: No Antibiotics given: No Counseled pt/family regarding: lab results, diagnosis, need for follow-up, rad results - Departure Departure Disposition: Home, In-patient Admission Clinical Impression: Cervical radiculopathy, Paresthesia of upper extremity Condition: Stable Critical Care Time: No Referrals: NUHA KERR MD [Primary Care Provider] - Additional Instructions: Discharge/Care Plan CASIMIRO WYNN was seen on 02/24/20 in the Emergency Room. The patient was counseled regarding Diagnosis,Lab results, Imaging studies, need for follow up and when to return to the Emergency Room. Prescriptions given: Discharge Note I have spoken with the patient and/or caregivers. I have explained the patient's condition, diagnosis and treatment plan based on the information available to me at this time. I have answered the patient's and/or caregiver's questions and addressed any concerns. The patient and/or caregivers have as good understanding of the patient's diagnosis, condition and treatment plan as can be expected at this point. The vital signs have been stable. The patient's condition is stable and appropriate for discharge from the emergency department. The patient will pursue further outpatient evaluation with the primary care physician or other designated or consulting physician as outlined in the discharge instructions. The patient and/or caregivers are agreeable to this plan of care and follow-up instructions have been explained in detail. The patient and/or caregivers have received these instruction. The patient/and or caregivers are aware that any significant change in condition or worsening of symptoms should prompt an immediate return to this or the closest emergency department or call 911.
[2020-02-23 21:39] LABS: Absolute Neutrophil Ct (ANC) 5.07 (1.4-6.9); BASOPHIL % 0.3 % (0.0-0.4); Basophil (Absolute #) 0.03 (0-0.4); Eosinophil % 2.5 % (0.00-5.0); Eosinophil (Absolute #) 0.26 (0-0.5); Hematocrit 47.3 % (42-50); Hemoglobin 14.8 gm/dl (12.5-18.0); Lymphocyte (Absolute #) 4.16 (1.0-4.6); Lymphocytes % 40.7 % (24.0-44.0); Mean Cell Volume 90.6 fl (78-100); Mean Corpuscular Hemoglobin 28.4 pg (26-32); Mean Corpuscular Hgb Concent. 31.3 g/dl (32-36); Mean Platelet Volume 9.9 fl (7.5-11.0); Monocytes % 6.8 % (0.0-12.0); Neutrophil % 49.7 % (36.0-66.0); Platelet Count 192 K/mm3 (150-450); Red Blood Count 5.22 M/mm3 (4.1-5.6); Red Cell Distribution Width 14.6 % (11.5-14.0); White Blood Count 10.2 K/mm3 (4.0-10.5)
[2020-02-23] MEDS: BABY ASPIRIN 81 MG CHEW PO ONE (21:44)
[2020-02-23 21:46] LABS: ALBUMIN 4.2 g/dL (3.5-5.0); ALKALINE PHOSPHATASE 104 U/L (38-126); ANION GAP 12.4 MEQ/L (5-15); BLOOD UREA NITROGEN 15 mg/dL (9-20); CHLORIDE 111 mmol/L (98-107); Calcium 9.3 mg/dL (8.4-10.2); Carbon Dioxide 23 mmol/L (22-30); Creatinine 1 0.81 mg/dL (0.66-1.25); Glucose 122 mg/dL (74-106); MAGNESIUM 2.1 mg/dL (1.6-2.3); Potassium 3.5 mmol/L (3.5-5.1); SGOT/AST 25 U/L (17-59); SGPT/ALT 30 U/L (0-50); SODIUM 143 mmol/L (137-145); Total Protein 7.1 g/dL (6.3-8.2)
[2020-02-23 21:51] LABS: Appearance CLEAR (CLEAR); Bilirubin NEGATIVE (NEGATIVE); Blood SMALL Ery/ul (0-5); Glucose >=500 mg/dL (NEGATIVE); Ketones NEGATIVE (NEGATIVE); Leukocyte Esterase NEGATIVE (NEGATIVE); Nitrite NEGATIVE (NEGATIVE); Protein,Urine Dip NEGATIVE (Negative); Specific Gravity 1.035 (1.005-1.025); Urobilinogen NEGATIVE mg/dL (0-1)
[2020-02-23 22:04] LABS: Amphetamine,Urine NEGATIVE (NEGATIVE); Barbiturate,Urine NEGATIVE (NEGATIVE); Benzodiazepine,Urine NEGATIVE (NEGATIVE); Cocaine,Urine NEGATIVE (NEGATIVE); Methadone,Urine NEGATIVE (NEGATIVE); Opiate,Urine NEGATIVE (NEGATIVE); PCP,Urine NEGATIVE (NEGATIVE); THC,Urine NEGATIVE (NEGATIVE)
[2020-02-24 01:10] VITALS: BP 130/89; PULSE 74; O2SAT 98
--- NOTE | 2020-02-24 08:51 | XRAY ---
Indication: Chest pain. Right upper extremity numbness and tingling several days. Comparison: July 17, 2018. Portable chest continues to demonstrate normal heart, lungs, and bony thorax.
== END 2020-02-24 01:10 | disposition home or self-care (01) ==
LOC: ED 20:47
DX: M54.12 Radiculopathy, cervical region (principal); R20.2 Paresthesia of skin
CPT/HCPCS: 36000; 36415; 71045; 80053; 80307; 81001; 83735; 84484; 85025; 93005; 93041; 94760; 99284; A9270-GY

== ENCOUNTER 2022-10-19 10:27 | Observation (INO) | payer OTHER ==
--- NOTE | 2022-10-19 11:27 | ERPHSYRPT ---
- History of Present Illness Time Seen by Provider: 10/19/22 11:23 Source: patient Exam Limitations: no limitations Patient Subjective Stated Complaint: Pt states that he has had right back shoulder pain since mid August and he saw Dr. Mejia on 09/25 and gave him a shot of Kenalog and gave him some Tramadol which he states helped him until 4-5 days ago and he tried to get him an MRI back in September but it was declined and so he got him an appt with pain management and it isn't until 11/04 and they can probably do the MRI per pt, today pt has pain and states that his right eye has went blurry a couple of times. Triage Nursing Assessment: Pt brought self to the ER, hypertensive, rates pain as /, pulses normal, skin n/w/d, chronic pain since august, denies injury, denies new mattress or pillow, hasn't taken anything today for pain Physician History: Pt has had neck pain for several weeks, failed PT and went back to and had temp result with steroids, but sharper today; however complicated by Hx CAD and on brilenta to prevent clots - no trauma. but had visula symptoms last pm and today and came in. no headache. has noted weakness right arm and pain rad right shoulder for weeks. no numbness. No pronator drift. visual montoya normal now and no visual symptoms. Full ROM right shoulder increased pain with downward adduction. reproduces neck pain. No IV drug use. No epidurals or spinal procedures. Timing/Duration: today, week(s) Character of Deficits: none Baseline/Normal Cognition: alert oriented x 3 Current Cognition: alert oriented x 3 Baseline Gait: walks w/o assistance Associated Symptoms: vision changes Allergies/Adverse Reactions: clopidogrel [From Plavix] Allergy (Mild, Verified 10/19/22 10:42) Itching Home Medications: Empagliflozin/Metformin HCl [Synjardy Xr 25-1,000 mg Tablet] 1 tab PO DAILY 02/23/20 [History] Lisinopril/Hydrochlorothiazide [Lisinopril-Hctz 20-12.5 mg Tab] 1 tab PO DAILY 02/23/20 [History] Semaglutide [Ozempic] 2 mg SQ WEEKLY 02/23/20 [History] Ticagrelor [Brilinta] 60 mg PO BID 02/23/20 [History] Bempedoic Acid/Ezetimibe [Nexlizet 180-10 mg Tablet] 1 each PO DAILY 10/19/22 [History] Hx Tetanus, Diphtheria Vaccination/Date Given: No (unknown) Hx Influenza Vaccination/Date Given: No Hx Pneumococcal Vaccination/Date Given: No Travel Risk - International Travel Have you traveled outside of the country in past 3 weeks: No - Coronavirus Screening Are you exhibiting any of the following symptoms?: No Close contact with a COVID-19 positive Pt in past 14-21 Days: No - Vaccine Status Have you recieved a Covid-19 vaccination: Yes 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: [employer] - Vaccination Dates Date of 2cond Vaccination (if applicable): 2020 - Review of Systems Constitutional: No Fever, No Chills Eyes: Vision Changes Ears, Nose, & Throat: No Symptoms Respiratory: No Cough, No Dyspnea Cardiac: No Chest Pain, No Edema, No Syncope Abdominal/Gastrointestinal: No Abdominal Pain, No Nausea, No Vomiting, No Diarrhea Genitourinary Symptoms: No Dysuria Musculoskeletal: Neck Pain, Joint Pain, No Back Pain, No Fall Skin: No Symptoms, No Rash Neurological: No Dizziness, No Focal Weakness, No Headache, No Sensory Changes Psychological: No Symptoms Endocrine: No Symptoms Hematologic/Lymphatic: No Symptoms Immunological/Allergic: No Symptoms All Other Systems: Reviewed and Negative - Past Medical History Pertinent Past Medical History: Yes Neurological History: No Pertinent History Cardiac History: Angina, Coronary Artery Disease, High Cholesterol, Hypertension, Myocardial Infarction (CA) Respiratory History: No Pertinent History Endocrine Medical History: Diabetes Type II Musculoskeletal History: Fractures - Past Surgical History Past Surgical History: Yes Cardiac: Cardiac Catheterization, Cardiac Stent Gastrointestinal: Cholecystectomy Musculoskeletal: Other Other Surgical History: finger reconstruction as a child - Social History Smoking Status: Former smoker Exposure to second hand smoke: Yes Drug Use: none Patient Lives Alone: No - Nursing Vital Signs Nursing Vital Signs: Initial Vital Signs Temperature 96.5 F 10/19/22 10:32 Pulse Rate 74 10/19/22 10:32 Blood Pressure 173/103 10/19/22 10:32 O2 Sat by Pulse Oximetry 100 10/19/22 10:32 Pain Scale Pain Intensity 5 - [place] Coma Scale Best Eye Response (Juliana): (4) open spontaneously Best Verbal Response (Juliana): (5) oriented Best Motor Response (Juliana): (6) obeys commands [place] Total: 15 - Physical Exam General Appearance: no apparent distress, alert Eye Exam: right eye: vision changes (resolved), bilateral eye: PERRL, EOMI Ears, Nose, Throat Exam: normal ENT inspection, pharynx normal, moist mucous membranes Neck Exam: normal inspection, non-tender, supple Respiratory: normal breath sounds, lungs clear, airway intact, No respiratory distress Cardiovascular: regular rate/rhythm, No edema Gastrointestinal: soft, No tenderness, No distention Back Exam: normal inspection Extremity Exam: normal inspection, No pedal edema Peripheral Pulses: carotid (R): 2+, carotid (L): 2+, femoral (R): 2+, femoral (L): 2+, dorsalis-pedis (R): 2+, dorsalis-pedis (L): 2+ Mental Status: alert, oriented x 3, 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 Exam: normal hearing, normal speech, PERRL, tongue midline Coordination/Gait: normal finger to nose, normal gait, normal cerebellar function Motor/Sensory: no motor deficit, no sensory deficit, no pronator drift DTR: bicep (R): 2+, bicep (L): 2+, tricep (R): 2+, tricep (L): 2+, knee (R): 2+, knee (L): 2+, ankle (R): 2+, ankle (L): 2+ Skin Exam: normal color, warm, dry, No rash SpO2 Interpretation: normal SpO2: 100 O2 Delivery: Room Air - Course Nursing assessment & vital signs reviewed: Yes EKG Interpreted by Me: Sinus Rhythm, NORMAL AXIS, NORMAL INTERVALS, NORMAL QRS, Non-specific ST Changes - CT Exams Head CT Interpretation: Tele-radiologist Report, No/Intracranial Hemorrhag, Other (SQ nodule scalp pt advised to f/u PMD) Soft Tissue Neck CT Interpretation: Tele-radiologist Report, Other (no dissection or disease) Ordered Tests: Active Orders 24 hr Category Date Time 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 Care 10/19/22 11:30 Active EKG-ER Only STAT Care 10/19/22 11:29 Active IV Insertion STAT Care 10/19/22 11:29 Active NPO (ED) STAT Care 10/19/22 11:29 Active Pulse Oximetry (ED) STAT Care 10/19/22 11:29 Active Tele-Health Consult ROUTINE Cons 10/19/22 11:[address] ANGIOGRAPHY NECK [CT] Stat Exams 10/19/22 18:31 Taken CTA HEAD W AND/OR WO CONTRAST [CT] Routine Exams 10/19/22 18:08 Taken HEAD WITHOUT CONTRAST [CT] Stat Exams 10/19/22 11:48 Completed CBC W DIFF Stat Lab 10/19/22 11:45 Completed CMP Stat Lab 10/19/22 11:45 Completed D-DIMER QUANTITATIVE Stat Lab 10/19/22 11:45 Completed NT PRO BNPII Stat Lab 10/19/22 11:45 Completed TROPONIN Q4H Lab 10/19/22 11:45 Completed TROPONIN Q4H Lab 10/19/22 15:05 Completed TROPONIN Q4H Lab 10/19/22 20:02 Completed Medication Summary Generic Name Dose Route Start Last Admin Trade Name Freq PRN Reason Stop Dose Admin Sodium Chloride 1,000 mls @ 100 mls/hr 10/19/22 11:30 10/19/22 12:03 Sodium Chloride 0.9% 1000 Ml IV 11/18/22 11:29 100 mls/hr .Q10H CLAUDY Administration Discontinued Medications Generic Name Dose Route Start Last Admin Trade Name Freq PRN Reason Stop Dose Admin Methylprednisolone Sodium 0 mg 10/19/22 11:33 10/19/22 12:03 Succinate 125 mg/ Sterile IV 10/19/22 11:34 125 mg Water 2 ml STAT ONE Administration Hydromorphone HCl 1 mg 10/19/22 11:32 10/19/22 12:06 Hydromorphone 1 Mg/1ml Inj 1 Mg/Ml Syringe IV 10/19/22 11:33 1 mg STAT ONE Administration Hydromorphone HCl Confirm 10/19/22 12:00 Hydromorphone 1 Mg/1ml Inj 1 Mg/Ml Syringe Administered 10/19/22 12:01 Dose 1 mg .ROUTE .STK-MED ONE Hydromorphone HCl 1 mg 10/19/22 14:56 10/19/22 15:02 Hydromorphone 1 Mg/1ml Inj 1 Mg/Ml Syringe IV 10/19/22 14:57 1 mg STAT ONE Administration Hydromorphone HCl Confirm 10/19/22 15:00 Hydromorphone 1 Mg/1ml Inj 1 Mg/Ml Syringe Administered 10/19/22 15:01 Dose 1 mg .ROUTE .STK-MED ONE Methylprednisolone Sodium Succinate Confirm 10/19/22 12:00 Methylprednis Sod Succ 125 Mg/2 Ml Vial Administered 10/19/22 12:01 Dose 125 mg .ROUTE .STK-MED ONE Sterile Water Confirm 10/19/22 12:00 Water For Injection,Sterile 10 Ml Vial Administered 10/19/22 12:01 Dose 10 ml IJ .STK-MED ONE Lab/Rad Data: Laboratory Result Diagrams 10/19/22 11:45 10/19/22 11:45 Laboratory Results 10/19/22 10/19/22 10/19/22 Range/Units 20:02 19:56 15:05 WBC (4.0-10.5) x10^3/uL RBC (4.1-5.6) x10^6/uL Hgb (12.5-18.0) g/dL Hct (42-50) % MCV (78-100) fL MCH (26-32) pg MCHC (32-36) g/dL RDW (11.5-14.0) % Plt Count (150-450) x10^3/uL MPV (7.5-11.0) fL Gran % (36.0-66.0) % Immature Gran % (Auto) (0.00-0.4) % Nucleat RBC Rel Count (0.00-0.1) % Eos # (Auto) (0-0.5) x10^3/uL Immature Gran # (Auto) (0.00-0.03) x10^3u/L Absolute Lymphs (auto) (1.0-4.6) x10^3/uL Absolute Monos (auto) (0.0-1.3) x10^3/uL Absolute Nucleated RBC (0.00-0.01) x10^3u/L Lymphocytes % (24.0-44.0) % Monocytes % (0.0-12.0) % Eosinophils % (0.00-5.0) % Basophils % (0.0-0.4) % Absolute Granulocytes (1.4-6.9) x10^3/uL Basophils # (0-0.4) x10^3/uL D-Dimer (0.0-0.50) mg/L Sodium (137-145) mmol/L Potassium (3.5-5.1) mmol/L Chloride (98-107) mmol/L Carbon Dioxide (22-30) mmol/L Anion Gap (5-15) MEQ/L BUN (9-20) mg/dL Creatinine (0.66-1.25) mg/dL Estimated GFR ML/MIN Glucose (74-106) mg/dL Calcium (8.4-10.2) mg/dL Total Bilirubin (0.2-1.3) mg/dL AST (17-59) U/L ALT (0-50) U/L Alkaline Phosphatase (38-126) U/L Troponin I < 0.012 < 0.012 (0.000-0.034) ng/mL NT-Pro-B Natriuret Pep (<300) pg/mL Serum Total Protein (6.3-8.2) g/dL Albumin (3.5-5.0) g/dL Influenza Type A Ag NEGATIVE (NEGATIVE) Influenza Type B Ag NEGATIVE (NEGATIVE) RSV (PCR) NEGATIVE (Negative) SARS-CoV-2 (PCR) NEGATIVE (NEGATIVE) 10/19/22 10/19/22 10/19/22 Range/Units 11:45 11:45 11:45 WBC (4.0-10.5) x10^3/uL RBC (4.1-5.6) x10^6/uL Hgb (12.5-18.0) g/dL Hct (42-50) % MCV (78-100) fL MCH (26-32) pg MCHC (32-36) g/dL RDW (11.5-14.0) % Plt Count (150-450) x10^3/uL MPV (7.5-11.0) fL Gran % (36.0-66.0) % Immature Gran % (Auto) (0.00-0.4) % Nucleat RBC Rel Count (0.00-0.1) % Eos # (Auto) (0-0.5) x10^3/uL Immature Gran # (Auto) (0.00-0.03) x10^3u/L Absolute Lymphs (auto) (1.0-4.6) x10^3/uL Absolute Monos (auto) (0.0-1.3) x10^3/uL Absolute Nucleated RBC (0.00-0.01) x10^3u/L Lymphocytes % (24.0-44.0) % Monocytes % (0.0-12.0) % Eosinophils % (0.00-5.0) % Basophils % (0.0-0.4) % Absolute Granulocytes (1.4-6.9) x10^3/uL Basophils # (0-0.4) x10^3/uL D-Dimer 0.23 (0.0-0.50) mg/L Sodium 141 (137-145) mmol/L Potassium 3.9 (3.5-5.1) mmol/L Chloride 106 (98-107) mmol/L Carbon Dioxide 28 (22-30) mmol/L Anion Gap 11.2 (5-15) MEQ/L BUN 18 (9-20) mg/dL Creatinine 0.79 (0.66-1.25) mg/dL Estimated GFR > 60.0 ML/MIN Glucose 100 (74-106) mg/dL Calcium 10.0 (8.4-10.2) mg/dL Total Bilirubin 0.40 (0.2-1.3) mg/dL AST 31 (17-59) U/L ALT 51 H (0-50) U/L Alkaline Phosphatase 110 (38-126) U/L Troponin I < 0.012 (0.000-0.034) ng/mL NT-Pro-B Natriuret Pep 90.4 (<300) pg/mL Serum Total Protein 7.4 (6.3-8.2) g/dL Albumin 4.3 (3.5-5.0) g/dL Influenza Type A Ag (NEGATIVE) Influenza Type B Ag (NEGATIVE) RSV (PCR) (Negative) SARS-CoV-2 (PCR) (NEGATIVE) 10/19/22 Range/Units 11:45 WBC 8.0 (4.0-10.5) x10^3/uL RBC 5.74 H (4.1-5.6) x10^6/uL Hgb 16.0 (12.5-18.0) g/dL Hct 50.0 (42-50) % MCV 87.1 (78-100) fL MCH 27.9 (26-32) pg MCHC 32.0 (32-36) g/dL RDW 13.0 (11.5-14.0) % Plt Count 236 (150-450) x10^3/uL MPV 9.0 (7.5-11.0) fL Gran % 60.2 (36.0-66.0) % Immature Gran % (Auto) 0.4 (0.00-0.4) % Nucleat RBC Rel Count 0.0 (0.00-0.1) % Eos # (Auto) 0.10 (0-0.5) x10^3/uL Immature Gran # (Auto) 0.03 (0.00-0.03) x10^3u/L Absolute Lymphs (auto) 2.52 (1.0-4.6) x10^3/uL Absolute Monos (auto) 0.51 (0.0-1.3) x10^3/uL Absolute Nucleated RBC 0.00 (0.00-0.01) x10^3u/L Lymphocytes % 31.4 (24.0-44.0) % Monocytes % 6.4 (0.0-12.0) % Eosinophils % 1.2 (0.00-5.0) % Basophils % 0.4 (0.0-0.4) % Absolute Granulocytes 4.84 (1.4-6.9) x10^3/uL Basophils # 0.03 (0-0.4) x10^3/uL D-Dimer (0.0-0.50) mg/L Sodium (137-145) mmol/L Potassium (3.5-5.1) mmol/L Chloride (98-107) mmol/L Carbon Dioxide (22-30) mmol/L Anion Gap (5-15) MEQ/L BUN (9-20) mg/dL Creatinine (0.66-1.25) mg/dL Estimated GFR ML/MIN Glucose (74-106) mg/dL Calcium (8.4-10.2) mg/dL Total Bilirubin (0.2-1.3) mg/dL AST (17-59) U/L ALT (0-50) U/L Alkaline Phosphatase (38-126) U/L Troponin I (0.000-0.034) ng/mL NT-Pro-B Natriuret Pep (<300) pg/mL Serum Total Protein (6.3-8.2) g/dL Albumin (3.5-5.0) g/dL Influenza Type A Ag (NEGATIVE) Influenza Type B Ag (NEGATIVE) RSV (PCR) (Negative) SARS-CoV-2 (PCR) (NEGATIVE) - Progress Progress: improved, re-examined Progress Note: 10/19/22 16:34 Having teleneuro and they are backed up and taking some time and just got started. 10/19/22 17:[address] Arcos and he requests CTA head and neck discussed with pt and he agrees after risk and benefit discussed. 10/19/22 20:[address] Porter after CTA and discussed result with pt as well - no dissection or blockages. Dr. Porter recommends admission and MRI . but also requests echo bubble study which we cannot get here soon. Will try for [facility] to see if they can accept pt and do workup. 10/19/22 20:28 10/19/22 21:18 had no neuro available and Dr. Nunez was consulted reuslts discussed and he accepted for obs and pt agrees Discussed with Dr.: Mina Will see patient in: hospital (observation) Counseled pt/family regarding: lab results, diagnosis, need for follow-up, rad results Medical Desision Making - Discussion of managment Care discussed with:: specialist (neuro) Reviewed:: Test results, Need for additional workup Agreed on:: Treatment plan, need for follow-up, decision to admit, place in obs Will see patient: in hospital - Diagnostic Testing Diagnostic test were ordered, analyzed, and reviewed by me: Yes Radiological Interpretation: Reviewed by me, Teleradiologist Report - Risk of complications The pt has a mod risk of morbidity or mortality based on: Need for prescription drug management The pt has a high risk of morbidity or mortality based on: Decision regarding hospitilization or escalation of hosp level of care - Departure Departure Disposition: Observation Clinical Impression: TIA (transient ischemic attack) Condition: Good Critical Care Time: No Referrals: NUHA MEJIA MD [Primary Care Provider] - Follow up/PCP as directed
[2022-10-19] MEDS ORDERED: Hydromorphone 1 mg/ml Injection IV ONE ×2 (11:32→14:56)
[2022-10-19] MEDS ORDERED: solu-MEDROL 125 MG, Sterile H2O 10 ml 2 ML IV ONE ×2 (11:33)
[2022-10-19 11:49] LABS: Absolute Neutrophil Ct (ANC) 4.84 x10^3/uL (1.4-6.9); BASOPHIL % 0.4 % (0.0-0.4); Basophil (Absolute #) 0.03 x10^3/uL (0-0.4); Eosinophil % 1.2 % (0.00-5.0); IMMATURE GRAN # 0.03 x10^3u/L (0.00-0.03); IMMATURE GRAN % 0.4 % (0.00-0.4); Lymphocyte (Absolute #) 2.52 x10^3/uL (1.0-4.6); Lymphocytes % 31.4 % (24.0-44.0); Mean Cell Volume 87.1 fL (78-100); Mean Corpuscular Hemoglobin 27.9 pg (26-32); Monocyte (Absolute #) 0.51 x10^3/uL (0.0-1.3); Monocytes % 6.4 % (0.0-12.0); Neutrophil % 60.2 % (36.0-66.0); Platelet Count 236 x10^3/uL (150-450); Red Blood Count 5.74 x10^6/uL (4.1-5.6)
[2022-10-19] MEDS ORDERED: solu-MEDROL ONE (12:00)
[2022-10-19] MEDS ORDERED: Sterile H2O 10 ml IJ ONE (12:00)
[2022-10-19] MEDS ORDERED: Hydromorphone 1 mg/ml Injection ONE ×2 (12:00→15:00)
[2022-10-19] MEDS ORDERED: Sodium Chloride 0.9% 1000 ML 1,000 ML ONE (12:01)
[2022-10-19] MEDS: Sodium Chloride 0.9% 1000 ML 1,000 ML IV SCH (12:03)
[2022-10-19 12:16] LABS: ALBUMIN 4.3 g/dL (3.5-5.0); ALKALINE PHOSPHATASE 110 U/L (38-126); ANION GAP 11.2 MEQ/L (5-15); BLOOD UREA NITROGEN 18 mg/dL (9-20); CHLORIDE 106 mmol/L (98-107); Carbon Dioxide 28 mmol/L (22-30); Creatinine 1 0.79 mg/dL (0.66-1.25); EST GLOMERULAR FILTRATION RATE > 60.0 ML/MIN; Glucose 100 mg/dL (74-106); NT PRO BNPII 90.4 pg/mL (<300); Potassium 3.9 mmol/L (3.5-5.1); SGOT/AST 31 U/L (17-59); SGPT/ALT 51 U/L (0-50); SODIUM 141 mmol/L (137-145); Total Protein 7.4 g/dL (6.3-8.2)
--- NOTE | 2022-10-19 19:18 | XRAY ---
Indication: Visual changes 2 weeks. Current blood thinner therapy. Multiple contiguous axial images obtained through the head without contrast. Comparison: None Normal appearing brain parenchyma, ventricles, and bony calvarium for patient's age. Visualized paranasal sinuses and mastoid air cells are clear. Impression: Normal CT head without contrast exam. Comment: Preliminary interpretation made by [facility]. No critical discrepancy.
[2022-10-19 20:36] LABS: INFLUENZA A NEGATIVE (NEGATIVE); INFLUENZA B NEGATIVE (NEGATIVE); RESPIRATORY SYNCTIAL VIRUS NEGATIVE (Negative); SARS-CoV-2 Xpert Express NEGATIVE (NEGATIVE)
[2022-10-19] MEDS ORDERED: Zofran 4 MG/2 ML VIAL IV PRN (21:36)
[2022-10-19] MEDS ORDERED: BRILINTA PO SCH (22:00)
[2022-10-19] MEDS ORDERED: Zestril 20 MG PO ONE (22:00)
[2022-10-19] MEDS ORDERED: hydroDIURIL 25 MG PO ONE (22:00)
[2022-10-19] MEDS: Hydromorphone 1 mg/ml Injection IV PRN (22:16)
[2022-10-19] MEDS: Coreg 3.125 MG PO SCH (22:18)
[2022-10-20] MEDS: Hydromorphone 1 mg/ml Injection IV PRN ×5 (02:24→20:13)
[2022-10-20 04:36] LABS: Absolute Neutrophil Ct (ANC) 10.67 x10^3/uL (1.4-6.9); BASOPHIL % 0.1 % (0.0-0.4); Basophil (Absolute #) 0.01 x10^3/uL (0-0.4); Eosinophil (Absolute #) 0 x10^3/uL (0-0.5); Hematocrit 48.3 % (42-50); Hemoglobin 15.6 g/dL (12.5-18.0); IMMATURE GRAN # 0.06 x10^3u/L (0.00-0.03); IMMATURE GRAN % 0.4 % (0.00-0.4); Lymphocyte (Absolute #) 2.35 x10^3/uL (1.0-4.6); Mean Cell Volume 86.4 fL (78-100); Mean Corpuscular Hemoglobin 27.9 pg (26-32); Mean Corpuscular Hgb Concent. 32.3 g/dL (32-36); Mean Platelet Volume 9.2 fL (7.5-11.0); Monocyte (Absolute #) 0.75 x10^3/uL (0.0-1.3); Monocytes % 5.4 % (0.0-12.0); Neutrophil % 77.1 % (36.0-66.0); Platelet Count 256 x10^3/uL (150-450); Red Blood Count 5.59 x10^6/uL (4.1-5.6); Red Cell Distribution Width 13.1 % (11.5-14.0); White Blood Count 13.8 x10^3/uL (4.0-10.5)
[2022-10-20 05:01] LABS: ALBUMIN 4.2 g/dL (3.5-5.0); ALKALINE PHOSPHATASE 94 U/L (38-126); ANION GAP 13.2 MEQ/L (5-15); BLOOD UREA NITROGEN 21 mg/dL (9-20); CHLORIDE 105 mmol/L (98-107); Calcium 9.4 mg/dL (8.4-10.2); Carbon Dioxide 24 mmol/L (22-30); Creatinine 1 0.76 mg/dL (0.66-1.25); EST GLOMERULAR FILTRATION RATE > 60.0 ML/MIN; Glucose 199 mg/dL (74-106); SGOT/AST 27 U/L (17-59); SGPT/ALT 41 U/L (0-50); SODIUM 138 mmol/L (137-145); Total Protein 7.1 g/dL (6.3-8.2)
[2022-10-20] MEDS ORDERED: MEDICATION INTERVENTION MC SCH (08:30)
--- NOTE | 2022-10-20 08:30 | PCM.HP ---
History of Present Illness - Chief Complaint Chief Complaint: pain History of Present Illness: is a 42 year old male with right shoulder and neck pain, has been seen in office and insurance denied MRI c-spine, awaiting pain management consult. Last night he was having significant pain in the right shoulder and neck region then had a short lived episode of feeling like a film was over his right eye and he had some associated visual change, it quickly resolved, his pain is currently well controlled and he is feeling much better this morning, he denies any numbness, tingling, weakness, paresthesias or visual changes/speech changes etc. - Review of Systems Constitutional: No Fever, No Chills Eyes: No Symptoms Ears, Nose, & Throat: No Symptoms Respiratory: No Cough, No Short Of Breath Cardiac: No Chest Pain, No Edema, No Syncope Abdominal/Gastrointestinal: No Abdominal Pain, No Nausea, No Vomiting, No Diarrhea Musculoskeletal: Neck Pain, No Fall, No Injury Skin: No Rash Neurological: No Focal Weakness, No Headache, No Paralysis, No Parasthesia, No Sensory Changes, No Speech Changes, No Vertigo Psychological: No Symptoms Medications & Allergies Home Medications: Home Medication List Aspirin EC 81 mg [Ecotrin 81 mg] 81 mg PO DAILY #30 tablet.ec 07/18/18 [Rx Confirmed 10/19/22] Carvedilol 3.125 mg [Coreg 3.125 MG] 3.125 mg PO BID #60 tablet 07/18/18 [ Rx Confirmed 10/19/22] Empagliflozin/Metformin HCl [Synjardy Xr 25-1,000 mg Tablet] 1 tab PO DAILY 02/23/20 [History Confirmed 10/19/22] Lisinopril/Hydrochlorothiazide [Lisinopril-Hctz 20-12.5 mg Tab] 1 tab PO DAILY 02/23/20 [History Confirmed 10/19/22] Semaglutide [Ozempic] 2 mg SQ WEEKLY 02/23/20 [History Confirmed 10/19/22] Ticagrelor [Brilinta] 60 mg PO BID 02/23/20 [History Confirmed 10/19/22] Bempedoic Acid/Ezetimibe [Nexlizet 180-10 mg Tablet] 1 each PO DAILY 10/19/22 [History Confirmed 10/19/22] Allergies/Adverse Reactions: Allergies Allergy/AdvReac Type Severity Reaction Status Date / Time clopidogrel [From Plavix] Allergy Mild Itching Verified 10/19/22 10:42 - Past Medical History Past Medical History: Yes Neurological History: No Pertinent History Cardiac History: Angina, Coronary Artery Disease, High Cholesterol, Hypertension, Myocardial Infarction ([place]) Respiratory History: No Pertinent History Endocrine Medical History: Diabetes Type II Musculoskelatal History: Fractures GI Medical History: No Pertinent History History: No Pertinent History Pyscho-Social History: No Pertinent History Male Reproductive Disorders: No Pertinent History - Past Surgical History Past Surgical History: Yes Neuro Surgical History: No Pertinent History Cardiac History: Cardiac Catheterization, Cardiac Stent Respiratory Surgery: No Pertinent History GI Surgical History: Cholecystectomy Musculskeletal Surgical Hx: Other Other Surgical History: finger reconstruction as a child - Social History Smoking Status: Never smoker Exposure to second hand smoke: No Alcohol: None Drug Use: none - Physical Exam Vital Signs: Vital Signs - 24 hr Temp Pulse Resp BP Pulse Ox 10/20/22 07:40 97.8 F 74 16 127/61 94 L 10/20/22 04:00 86 16 10/20/22 00:00 97.9 F 92 H 18 120/67 90 L 10/19/22 23:01 97.7 F 94 H 17 140/80 94 L 10/19/22 21:23 100 10/19/22 19:19 79 16 138/92 94 L 10/19/22 18:12 80 18 122/75 93 L 10/19/22 17:00 97.5 F 87 18 126/76 96 10/19/22 16:39 77 11 L 130/83 94 L 10/19/22 15:43 75 14 133/84 96 10/19/22 14:06 73 14 131/87 93 L 10/19/22 13:33 73 20 137/77 100 10/19/22 11:32 96 10/19/22 10:32 96.5 F 74 173/103 100 General Appearance: no apparent distress Neurologic Exam: alert, oriented x 3, yarn hauler II-XII nml as tested, No motor deficits, No sensory deficit, No dysarthria Eye Exam: PERRL/EOMI, eyes nml inspection Neck Exam: normal inspection, non-tender, supple, full range of motion Respiratory Exam: normal breath sounds, lungs clear, No respiratory distress Cardiovascular Exam: regular rate/rhythm, normal heart sounds, normal peripheral pulses Gastrointestinal/Abdomen Exam: soft, normal bowel sounds, No tenderness, No mass Extremity Exam: normal inspection, normal range of motion, pelvis stable Results - Labs Lab/Micro Results: Lab Results-Last 24 Hours 10/19/22 10/19/22 10/19/22 Range/Units 11:45 11:45 11:45 WBC 8.0 (4.0-10.5) x10^3/uL RBC 5.74 H (4.1-5.6) x10^6/uL Hgb 16.0 (12.5-18.0) g/dL Hct 50.0 (42-50) % MCV 87.1 (78-100) fL MCH 27.9 (26-32) pg MCHC 32.0 (32-36) g/dL RDW 13.0 (11.5-14.0) % Plt Count 236 (150-450) x10^3/uL MPV 9.0 (7.5-11.0) fL Gran % 60.2 (36.0-66.0) % Immature Gran % (Auto) 0.4 (0.00-0.4) % Nucleat RBC Rel Count 0.0 (0.00-0.1) % Eos # (Auto) 0.10 (0-0.5) x10^3/uL Immature Gran # (Auto) 0.03 (0.00-0.03) x10^3u/L Absolute Lymphs (auto) 2.52 (1.0-4.6) x10^3/uL Absolute Monos (auto) 0.51 (0.0-1.3) x10^3/uL Absolute Nucleated RBC 0.00 (0.00-0.01) x10^3u/L Lymphocytes % 31.4 (24.0-44.0) % Monocytes % 6.4 (0.0-12.0) % Eosinophils % 1.2 (0.00-5.0) % Basophils % 0.4 (0.0-0.4) % Absolute Granulocytes 4.84 (1.4-6.9) x10^3/uL Basophils # 0.03 (0-0.4) x10^3/uL D-Dimer 0.23 (0.0-0.50) mg/L Sodium 141 (137-145) mmol/L Potassium 3.9 (3.5-5.1) mmol/L Chloride 106 (98-107) mmol/L Carbon Dioxide 28 (22-30) mmol/L Anion Gap 11.2 (5-15) MEQ/L BUN 18 (9-20) mg/dL Creatinine 0.79 (0.66-1.25) mg/dL Estimated GFR > 60.0 ML/MIN Glucose 100 (74-106) mg/dL POC Glucometer (74 to 106) mg/dL Calcium 10.0 (8.4-10.2) mg/dL Total Bilirubin 0.40 (0.2-1.3) mg/dL AST 31 (17-59) U/L ALT 51 H (0-50) U/L Alkaline Phosphatase 110 (38-126) U/L Troponin I (0.000-0.034) ng/mL NT-Pro-B Natriuret Pep 90.4 (<300) pg/mL Serum Total Protein 7.4 (6.3-8.2) g/dL Albumin 4.3 (3.5-5.0) g/dL Influenza Type A Ag (NEGATIVE) Influenza Type B Ag (NEGATIVE) RSV (PCR) (Negative) SARS-CoV-2 (PCR) (NEGATIVE) 10/19/22 10/19/22 10/19/22 Range/Units 11:45 15:05 19:56 WBC (4.0-10.5) x10^3/uL RBC (4.1-5.6) x10^6/uL Hgb (12.5-18.0) g/dL Hct (42-50) % MCV (78-100) fL MCH (26-32) pg MCHC (32-36) g/dL RDW (11.5-14.0) % Plt Count (150-450) x10^3/uL MPV (7.5-11.0) fL Gran % (36.0-66.0) % Immature Gran % (Auto) (0.00-0.4) % Nucleat RBC Rel Count (0.00-0.1) % Eos # (Auto) (0-0.5) x10^3/uL Immature Gran # (Auto) (0.00-0.03) x10^3u/L Absolute Lymphs (auto) (1.0-4.6) x10^3/uL Absolute Monos (auto) (0.0-1.3) x10^3/uL Absolute Nucleated RBC (0.00-0.01) x10^3u/L Lymphocytes % (24.0-44.0) % Monocytes % (0.0-12.0) % Eosinophils % (0.00-5.0) % Basophils % (0.0-0.4) % Absolute Granulocytes (1.4-6.9) x10^3/uL Basophils # (0-0.4) x10^3/uL D-Dimer (0.0-0.50) mg/L Sodium (137-145) mmol/L Potassium (3.5-5.1) mmol/L Chloride (98-107) mmol/L Carbon Dioxide (22-30) mmol/L Anion Gap (5-15) MEQ/L BUN (9-20) mg/dL Creatinine (0.66-1.25) mg/dL Estimated GFR ML/MIN Glucose (74-106) mg/dL POC Glucometer (74 to 106) mg/dL Calcium (8.4-10.2) mg/dL Total Bilirubin (0.2-1.3) mg/dL AST (17-59) U/L ALT (0-50) U/L Alkaline Phosphatase (38-126) U/L Troponin I < 0.012 < 0.012 (0.000-0.034) ng/mL NT-Pro-B Natriuret Pep (<300) pg/mL Serum Total Protein (6.3-8.2) g/dL Albumin (3.5-5.0) g/dL Influenza Type A Ag NEGATIVE (NEGATIVE) Influenza Type B Ag NEGATIVE (NEGATIVE) RSV (PCR) NEGATIVE (Negative) SARS-CoV-2 (PCR) NEGATIVE (NEGATIVE) 10/19/22 10/20/22 10/20/22 Range/Units 20:02 04:36 04:36 WBC 13.8 H (4.0-10.5) x10^3/uL RBC 5.59 (4.1-5.6) x10^6/uL Hgb 15.6 (12.5-18.0) g/dL Hct 48.3 (42-50) % MCV 86.4 (78-100) fL MCH 27.9 (26-32) pg MCHC 32.3 (32-36) g/dL RDW 13.1 (11.5-14.0) % Plt Count 256 (150-450) x10^3/uL MPV 9.2 (7.5-11.0) fL Gran % 77.1 H (36.0-66.0) % Immature Gran % (Auto) 0.4 (0.00-0.4) % Nucleat RBC Rel Count 0.0 (0.00-0.1) % Eos # (Auto) 0 (0-0.5) x10^3/uL Immature Gran # (Auto) 0.06 H (0.00-0.03) x10^3u/L Absolute Lymphs (auto) 2.35 (1.0-4.6) x10^3/uL Absolute Monos (auto) 0.75 (0.0-1.3) x10^3/uL Absolute Nucleated RBC 0.00 (0.00-0.01) x10^3u/L Lymphocytes % 17.0 L (24.0-44.0) % Monocytes % 5.4 (0.0-12.0) % Eosinophils % 0.0 (0.00-5.0) % Basophils % 0.1 (0.0-0.4) % Absolute Granulocytes 10.67 H (1.4-6.9) x10^3/uL Basophils # 0.01 (0-0.4) x10^3/uL D-Dimer (0.0-0.50) mg/L Sodium 138 (137-145) mmol/L Potassium 4.0 (3.5-5.1) mmol/L Chloride 105 (98-107) mmol/L Carbon Dioxide 24 (22-30) mmol/L Anion Gap 13.2 (5-15) MEQ/L BUN 21 H (9-20) mg/dL Creatinine 0.76 (0.66-1.25) mg/dL Estimated GFR > 60.0 ML/MIN Glucose 199 H (74-106) mg/dL POC Glucometer (74 to 106) mg/dL Calcium 9.4 (8.4-10.2) mg/dL Total Bilirubin 0.50 (0.2-1.3) mg/dL AST 27 (17-59) U/L ALT 41 (0-50) U/L Alkaline Phosphatase 94 (38-126) U/L Troponin I < 0.012 (0.000-0.034) ng/mL NT-Pro-B Natriuret Pep (<300) pg/mL Serum Total Protein 7.1 (6.3-8.2) g/dL Albumin 4.2 (3.5-5.0) g/dL Influenza Type A Ag (NEGATIVE) Influenza Type B Ag (NEGATIVE) RSV (PCR) (Negative) SARS-CoV-2 (PCR) (NEGATIVE) 10/20/22 Range/Units 07:32 WBC (4.0-10.5) x10^3/uL RBC (4.1-5.6) x10^6/uL Hgb (12.5-18.0) g/dL Hct (42-50) % MCV (78-100) fL MCH (26-32) pg MCHC (32-36) g/dL RDW (11.5-14.0) % Plt Count (150-450) x10^3/uL MPV (7.5-11.0) fL Gran % (36.0-66.0) % Immature Gran % (Auto) (0.00-0.4) % Nucleat RBC Rel Count (0.00-0.1) % Eos # (Auto) (0-0.5) x10^3/uL Immature Gran # (Auto) (0.00-0.03) x10^3u/L Absolute Lymphs (auto) (1.0-4.6) x10^3/uL Absolute Monos (auto) (0.0-1.3) x10^3/uL Absolute Nucleated RBC (0.00-0.01) x10^3u/L Lymphocytes % (24.0-44.0) % Monocytes % (0.0-12.0) % Eosinophils % (0.00-5.0) % Basophils % (0.0-0.4) % Absolute Granulocytes (1.4-6.9) x10^3/uL Basophils # (0-0.4) x10^3/uL D-Dimer (0.0-0.50) mg/L Sodium (137-145) mmol/L Potassium (3.5-5.1) mmol/L Chloride (98-107) mmol/L Carbon Dioxide (22-30) mmol/L Anion Gap (5-15) MEQ/L BUN (9-20) mg/dL Creatinine (0.66-1.25) mg/dL Estimated GFR ML/MIN Glucose (74-106) mg/dL POC Glucometer 179 H (74 to 106) mg/dL Calcium (8.4-10.2) mg/dL Total Bilirubin (0.2-1.3) mg/dL AST (17-59) U/L ALT (0-50) U/L Alkaline Phosphatase (38-126) U/L Troponin I (0.000-0.034) ng/mL NT-Pro-B Natriuret Pep (<300) pg/mL Serum Total Protein (6.3-8.2) g/dL Albumin (3.5-5.0) g/dL Influenza Type A Ag (NEGATIVE) Influenza Type B Ag (NEGATIVE) RSV (PCR) (Negative) SARS-CoV-2 (PCR) (NEGATIVE) Accuchecks Date 10/20/22 Time 07:41 - Radiology Impressions Radiology Exams & Impressions: Radiology Procedures Category Date Time Status CT ANGIOGRAPHY NECK [CT] Stat Exams 10/19/22 18:31 Taken CTA HEAD W AND/OR WO CONTRAST [CT] Routine Exams 10/19/22 18:08 Taken HEAD WITHOUT CONTRAST [CT] Stat Exams 10/19/22 11:48 Completed MRI BRAIN W/O CONTRAST [MRI] Routine Exams 10/20/22 08:25 Ordered MRI C-SPINE W/O CONTRAST [MRI] Routine Exams 10/20/22 08:26 Ordered Assessment/Plan (1) TIA (transient ischemic attack) Current Visit: Yes Status: Acute Assessment & Plan: continue asa/ brillinta. MRI brain is pending at this time, appears neurologically normal Code(s): G45.9 - TRANSIENT CEREBRAL ISCHEMIC ATTACK, UNSPECIFIED (2) Cervical radiculopathy Current Visit: No Status: Acute Assessment & Plan: obtain MRI c-spine Code(s): M54.12 - RADICULOPATHY, CERVICAL REGION (3) Diabetes mellitus Current Visit: No Status: Acute Code(s): E11.9 - TYPE 2 DIABETES MELLITUS WITHOUT COMPLICATIONS
[2022-10-20] MEDS: HUMULIN R SQ PRN ×2 (08:40→11:58)
--- NOTE | 2022-10-20 08:40 | XRAY ---
Indication: Visual changes 2 weeks. Current blood thinner therapy. Conventional contrast enhanced CTA neck performed using 80 cc Isovue 370 contrast. 2-D sagittal and coronal reformatted images obtained. Additional 3-D reformatted images obtained using a separate workstation. Comparison: None Visualized aortic arch is normal in course and caliber with widely branches in right brachiocephalic, left common carotid, and left subclavian arteries. Normal CTA appearance to the common carotid, carotid bulb, internal carotid, and external carotid arteries bilaterally. Vertebral arteries are also normal in CTA appearance with the right slightly larger in caliber. Visualized soft tissues demonstrates a few subcentimeter cervical and submandibular lymph nodes bilaterally. No pathologic lymphadenopathy. Thyroid gland enhances homogeneously. Supra and infraglottic airway are widely patent. Visualized osseous structures intact and unremarkable. Lung apices are clear. Impression: Normal CTA neck with contrast exam. Comment: Preliminary interpretation made by [facility]. No critical discrepancy.
--- NOTE | 2022-10-20 08:44 | XRAY ---
Indication: Visual changes 2 weeks. Current blood thinner therapy. Conventional contrast enhanced CTA head performed using 80 cc Isovue 370 contrast. 2-D sagittal and coronal reformatted images obtained. Additional 3-D reformatted images obtained using a separate workstation. Comparison: None Distal internal carotid arteries are bilaterally symmetric without critical stenosis, obstruction, or AV malformation. Normal carotid terminus with normal branching A1 and M1 segments bilaterally. Anatomic variant for origin left posterior cerebral artery. More distal anterior cerebral, middle cerebral, anterior communicating, and posterior communicating arteries are normal in CTA appearance. Posterior circulation demonstrates normal CTA appearance to the basilar, left/right posterior cerebral, and left/right superior cerebellar arteries. Venous drainage/sinuses are unremarkable. No abnormal enhancing intra or extra-axial mass. Impression: Normal CTA head with contrast exam. Comment: Preliminary interpretation made by [facility]. No critical discrepancy.
[2022-10-20] MEDS ORDERED: Zestril 20 MG*** 20 MG, hydroDIURIL 25 MG*** 12.5 MG PO SCH ×2 (10:00)
[2022-10-20] MEDS ORDERED: TICAGRELOR 60 MG PO SCH (10:00)
[2022-10-20] MEDS ORDERED: NON-FORMULARY ITEM (Lisinopril/Hydrochlorothiazide [Lisinopril-Hctz 20-12.5 Mg Tab] 1 EACH PO SCH (10:00)
[2022-10-20] MEDS: ECOTRIN 81 MG PO SCH (10:15)
[2022-10-20] MEDS: hydroDIURIL 25 MG PO SCH (10:15)
[2022-10-20] MEDS: Zestril 20 MG PO SCH (10:15)
[2022-10-20] MEDS: Coreg 3.125 MG PO SCH ×2 (10:16→21:01)
[2022-10-20] MEDS: BRILINTA PO SCH ×2 (12:45→21:01)
--- NOTE | 2022-10-20 14:58 | XRAY ---
Indication: Right arm weakness and right blurred vision. Normal CT head, CTA neck, and CTA head exams. Sagittal, coronal, and axial MRI brain performed without contrast using T1, T2, FLAIR, diffusion, and ADC sequences. Comparison: None Ventriculosulcal pattern appears symmetric. No acute intracranial hemorrhage, abnormal extra-axial fluid collection, or mass effect. Diffusion images are negative for restricted signal. Fourth ventricle is midline without hydrocephalus. 7/8 cranial nerve complex bilaterally symmetric. Normal flow-void signal within the major intracerebral circulation. Normal appearing craniocervical junction and sella turcica. Visualized paranasal sinuses are clear. Impression: Negative MRI brain without contrast exam.
--- NOTE | 2022-10-20 16:40 | XRAY ---
Indication: Right neck pain radiating down arm. Right arm numbness. Sagittal and axial MRI cervical spine performed without contrast using T1 and T2-weighted sequences. Comparison: None Sagittal images demonstrates lordotic straightening with mild dextroscoliosis centered at C5. Mild C3-C7 degenerative disc desiccation signal with minimal disc space narrowing. C5 vertebral body demonstrates mild low signal on T1 and T2 weighting favoring sclerosis, confirmed on CTA neck 1 day earlier. Elsewhere no acute fracture, suspicious bony lesions, or abnormal bone marrow signal. Spinal cord is normal in course and caliber without signal abnormality. Normal appearing craniocervical junction. Axial images at C2-C3 level demonstrates left foraminal narrowing due to uncovertebral spurring. No disc herniation or canal stenosis. At C3-C5 levels, bilateral foraminal stenosis due to uncovertebral spurring. No disc herniation or canal stenosis. At C5-C6 level, there is mild broad-based disc bulge minimally effaces the thecal sac. No disc herniation or canal stenosis. Bilateral foraminal stenosis due to uncovertebral spurring. At C6-C7 level, there is left foraminal narrowing due to uncovertebral spurring. No disc herniation or canal stenosis. The C7-T1 level is unremarkable. Impression: 1. Mild multilevel degenerative changes, greatest at C5-C6. 2. Indeterminant C5 vertebral body sclerosis. Osteoblastic malignancy not completely excluded in the right clinical setting. 3. Incidental cervical lordotic straightening and dextroscoliosis.
[2022-10-20] MEDS: Sodium Chloride 0.9% 1000 ML 1,000 ML IV SCH (20:25)
[2022-10-20] MEDS ORDERED: Cyclobenzaprine 10 MG PO PRN (23:17)
[2022-10-21] MEDS: Hydromorphone 1 mg/ml Injection IV PRN (01:06)
[2022-10-21 04:54] VITALS: O2SAT 96
[2022-10-21 07:19] VITALS: BP 117/68; PULSE 67
--- NOTE | 2022-10-21 08:38 | PCM.DS ---
Discharge Summary Date of Admission: 10/19/22 21:35 Admitting Physician: NUHA KERR Consults: Consults on Case 10/19/22 11:31 Tele-Health Consult ROUTINE Primary Care Provider: NUHA KERR Allergies Allergies clopidogrel [From Plavix] Allergy (Mild, Verified 10/19/22 10:42) Itching Hospital Summary - Hospital Course Hospital Course: patient was admitted with transient visual change in right eye, resolved prior to admission. MRI brain was negative, he also has right shoulder and arm pain with weakness in the arm consistent with cervical radiculopathy, MRI findings noted - Vitals & Intake/Output Vital Signs: Vital Signs Temperature 97.5 F 10/21/22 07:18 Pulse Rate 67 10/21/22 07:18 Respiratory Rate 17 10/21/22 07:18 Blood Pressure 117/68 10/21/22 07:18 O2 Sat by Pulse Oximetry 96 10/21/22 07:18 Intake & Output: Intake & Output 10/18/22 10/19/22 10/20/22 10/21/22 11:59 11:59 11:59 11:59 Intake Total 780 1180 Balance 780 1180 Weight 113.852 kg 113.6 kg - Lab Result Diagrams: 10/20/22 04:36 10/20/22 04:36 Lab Results-Last 24 Hrs: Lab Results-Last 24 Hours 10/20/22 10/20/22 10/20/22 Range/Units 04:00 11:40 16:23 POC Glucometer 172 H 113 H (74 to 106) mg/dL Hemoglobin A1c 6.83 H (4.5-6.0) % 10/20/22 10/21/22 Range/Units 21:49 06:28 POC Glucometer 149 H 203 H (74 to 106) mg/dL Hemoglobin A1c (4.5-6.0) % Micro Results-Entire Visit: Accuchecks Date 10/21/22 Date 10/20/22 Date 10/20/22 Date 10/20/22 Time 07:18 Time 16:45 Time 11:51 - Radiology Exams Ordered Rad Exams-Entire Visit: Radiology Procedures Category Date Time Status CT ANGIOGRAPHY NECK [CT] Stat Exams 10/19/22 18:31 Completed CTA HEAD W AND/OR WO CONTRAST [CT] Routine Exams 10/19/22 18:08 Completed HEAD WITHOUT CONTRAST [CT] Stat Exams 10/19/22 11:48 Completed MRI BRAIN W/O CONTRAST [MRI] Routine Exams 10/20/22 08:25 Completed MRI C-SPINE W/O CONTRAST [MRI] Routine Exams 10/20/22 08:26 Completed Discharge Exam General Appearance: no apparent distress Neurologic Exam: alert, oriented x 3 Respiratory Exam: normal breath sounds, lungs clear, No respiratory distress Cardiovascular Exam: regular rate/rhythm, normal heart sounds Gastrointestinal/Abdomen Exam: soft, No tenderness, No mass Extremity Exam: normal inspection, normal range of motion Skin Exam: normal color, warm, dry Final Diagnosis/Problem List - Final Discharge Diagnosis/Problem (1) TIA (transient ischemic attack) Current Visit: Yes Status: Acute Code(s): G45.9 - TRANSIENT CEREBRAL ISCHEMIC ATTACK, UNSPECIFIED (2) Cervical disc disorder at C5-C6 level with radiculopathy Current Visit: Yes Status: Acute Assessment & Plan: c5/6 disc bulge with slight thecal sac impingement, refer to [facility] Code(s): M50.122 - CERVICAL DISC DISORDER AT C5-C6 LEVEL WITH RADICULOPATHY (3) Lesion of cervical vertebra Current Visit: Yes Status: Acute Assessment & Plan: osteoblastic lesion c5, 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 Code(s): M89.9 - DISORDER OF BONE, UNSPECIFIED (4) Diabetes mellitus Current Visit: No Status: Acute Code(s): E11.9 - TYPE 2 DIABETES MELLITUS WITHOUT COMPLICATIONS - Discharge Disposition: Home, Self-Care Condition: Good Prescriptions: New Hydrocodone/Acetaminophen [Hydrocodone-Acetamin 7.5-325] 1 each PO Q6H PRN PRN #28 tablet MDD 4 PRN Reason: Pain Cyclobenzaprine HCl 10 mg [Cyclobenzaprine 10 MG] 10 mg PO TID PRN #30 tablet MDD 3 Continue Carvedilol 3.125 mg [Coreg 3.125 MG] 3.125 mg PO BID #60 tablet Aspirin EC 81 mg [Ecotrin 81 mg] 81 mg PO DAILY #30 tablet.ec Ticagrelor [Brilinta] 60 mg PO BID Semaglutide [Ozempic] 2 mg SQ WEEKLY Lisinopril/Hydrochlorothiazide [Lisinopril-Hctz 20-12.5 mg Tab] 1 tab PO DAILY Empagliflozin/Metformin HCl [Synjardy Xr 25-1,000 mg Tablet] 1 tab PO DAILY Bempedoic Acid/Ezetimibe [Nexlizet 180-10 mg Tablet] 1 each PO DAILY Additional Instructions: please refer to [facility] in [place], please arrange referral and have radiology push MRI brain and neck to [facility] for their review, please schedule first available consult MARIKA Follow up with: NUHA KERR MD [Primary Care Provider] - 1 Week
[2022-10-21] MEDS: BRILINTA PO SCH (09:15)
[2022-10-21] MEDS: Zestril 20 MG PO SCH (09:15)
[2022-10-21] MEDS: hydroDIURIL 25 MG PO SCH (09:15)
[2022-10-21] MEDS: ECOTRIN 81 MG PO SCH (09:16)
[2022-10-21] MEDS: Coreg 3.125 MG PO SCH (09:16)
== END 2022-10-21 10:05 | disposition home or self-care (01) ==
LOC: ED 10:27 → MED SURG 21:35
PROVIDERS: ADMIT Family Medicine; ATTEND Family Medicine
DX: G45.9 Transient cerebral ischemic attack, unspecified (principal); M50.122 Cervical disc disorder at C5-C6 level with radiculopathy; M89.9 Disorder of bone, unspecified; E11.9 Type 2 diabetes mellitus without complications; E78.5 Hyperlipidemia, unspecified; I25.10 Atherosclerotic heart disease of native coronary artery without angina pectoris; I10 Essential (primary) hypertension; I25.2 Old myocardial infarction; Z20.828 Contact with and (suspected) exposure to other viral communicable diseases; Z79.899 Other long term (current) drug therapy
CPT/HCPCS: 0241U; 36000; 36415; 70450; 70496; 70498; 70551; 72141; 80053; 82947; 83036; 83880; 84484; 85025; 85379; 93005; 93041; 94760; 96374; 96375; 96376; 99285; J1170; J1815; J2930; A9270-GY

== ENCOUNTER 2024-01-31 19:22 | Observation (INO) | payer OTHER ==
--- NOTE | 2024-01-31 19:58 | ERPHSYRPT ---
- History of Present Illness Time Seen by Provider: 01/31/24 19:44 Source: patient Exam Limitations: no limitations Patient Subjective Stated Complaint: C/O left arm pain. Patient indicates that he started having some tingling in his left thumb and index finger on Thursday E ve. States that his left arm and left side of his neck are now hurting (this feels different than the feeling in his fingers). Denies injury. Denies SOB or chest pain. Triage Nursing Assessment: Patient ambulated back to ER without difficulties. Skin tone normal to LUE; no skin alterations noted. ROM WNL. No SOB noted. Patient is alert and oriented. Physician History: About 9 days ago pt had a headache behind his face 6/10 in severity for 3 hours. Since 6 days ago pt has had constant decreased sensation of his left thumb & index finger; since yesterday constant left forearm/arm/shoulder dull achy pain 7/10 in severity. Chest pain, shortness of air, fever, abdominal pain, nausea, vomiting, diarrhea, trauma to left upper extremity all denied. Allergies/Adverse Reactions: clopidogrel [From Plavix] Allergy (Mild, Verified 01/31/24 19:36) Itching Home Medications: Empagliflozin/Metformin HCl [Synjardy Xr 25-1,000 mg Tablet] 1 tab PO DAILY 02/23/20 [History] Lisinopril/Hydrochlorothiazide [Lisinopril-Hctz 20-12.5 mg Tab] 1 tab PO DAILY 02/23/20 [History] Semaglutide [Ozempic] 2 mg SQ WEEKLY 02/23/20 [History] Ticagrelor [Brilinta] 60 mg PO BID 02/23/20 [History] Bempedoic Acid/Ezetimibe [Nexlizet 180-10 mg Tablet] 1 each PO DAILY 10/19/22 [History] Meloxicam 15 mg [Meloxicam 15 MG] 15 mg PO DAILY 01/31/24 [History] Hx Tetanus, Diphtheria Vaccination/Date Given: Yes Hx Influenza Vaccination/Date Given: No Hx Pneumococcal Vaccination/Date Given: No Immunizations Up to Date: Yes Travel Risk - International Travel Have you traveled outside of the country in past 3 weeks: No - Emerging Infectious Disease Are you exhibiting symptoms associated with any current EIDs: No - Review of Systems Constitutional: No Fever Ears, Nose, & Throat: No Throat Pain Respiratory: No Dyspnea Cardiac: No Chest Pain Abdominal/Gastrointestinal: No Abdominal Pain, No Nausea, No Vomiting, No Diarrhea Genitourinary Symptoms: No Dysuria Musculoskeletal: Other (left shoulder, arm & forearm pain since yesterday) Skin: No Rash Neurological: Headache (9 days ago), Sensory Changes (decreased sensation of left thumb & index finger for the past 6 days) - Past Medical History Pertinent Past Medical History: Yes Neurological History: No Pertinent History Cardiac History: Angina, Coronary Artery Disease, High Cholesterol, Hypertension, Myocardial Infarction (DE) Respiratory History: No Pertinent History Endocrine Medical History: Diabetes Type II Musculoskeletal History: Fractures GI Medical History: Gallbladder Disease History: No Pertinent History Psycho-Social History: No Pertinent History Male Reproductive Disorders: No Pertinent History Other Medical History: Hospital Coordinator: Dr. Marroquin - Past Surgical History Past Surgical History: Yes Neuro Surgical History: No Pertinent History Cardiac: Cardiac Catheterization, Cardiac Stent Respiratory: No Pertinent History Gastrointestinal: Cholecystectomy Musculoskeletal: Other Other Surgical History: finger reconstruction as a child - Social History Smoking Status: Former smoker Exposure to second hand smoke: No Drug Use: none Patient Lives Alone: No - Social Determinants of Health Will the patient participate in the screening: Yes Do you worry about a steady place to live?: No Do you have any problems with any of the following?: No known problems In the past 12 months,have you had to go without utilities?: No Transportation Issues: No Has anyone in your support network made you feel unsafe?: No Have you or anyone in your house had to go without enough: No - Nursing Vital Signs Nursing Vital Signs: Initial Vital Signs Temperature 98 F 01/31/24 19:22 Pulse Rate 90 01/31/24 19:22 Respiratory Rate 20 01/31/24 19:22 Blood Pressure 149/87 01/31/24 19:22 O2 Sat by Pulse Oximetry 95 01/31/24 19:22 Pain Scale Pain Intensity 2 - Physical Exam General Appearance: alert Eyes, Ears, Nose, Throat Exam: TMs normal, pharynx normal Neck Exam: normal inspection Cardiovascular/Respiratory Exam: normal breath sounds, heart sounds normal Shoulder Exam: normal ROM Elbow/Forearm Exam: normal ROM Wrist Exam: normal ROM Hand Exam: normal ROM Neuro/Tendon Exam: sensory deficit (decreased senastion of left thumb & index finger) Mental Status Exam: alert, cooperative Skin Exam: warm, dry SpO2 Interpretation: normal SpO2: 95 O2 Delivery: Room Air - Course Nursing assessment & vital signs reviewed: Yes EKG Interpreted by Me: RATE (80), Sinus Rhythm, NORMAL AXIS, Other (QTc = 394) - Radiology Exams Chest X-ray Interpretation: Interpreted by me, No Pneumonia - CT Exams Head CT Interpretation: Tele-radiologist Report (No significant radiological interval change identified(comparison MRI brain 10/20/2022). No acute intracranial abn ormality was identified. See rest of report.) Cervical Spine CT Interpretation: Tele-radiologist Report (1. Ivory C5 vertebra and sclerosis of odontoid process, differential inculde osteoblastic metastasis, lymphoma, TB, hemangioma or Paget disease of bone which needs further assessment by contrast-enhanced cervical MRI, PET CT scan. See rest of report.) Ordered Tests: Active Orders 24 hr Category Date Time Status EKG-ER Only STAT Care 01/31/24 20:05 Active IV Insertion STAT Care 01/31/24 20:05 Active CERVICAL SPINE WO CONTRAST [CT] Stat Exams 01/31/24 20:04 Completed CHEST 2 VIEWS (PA AND LAT) Stat Exams 01/31/24 20:07 Taken HEAD WITHOUT CONTRAST [CT] Stat Exams 01/31/24 20:02 Completed BMP Stat Lab 01/31/24 20:05 Completed CBC W DIFF Stat Lab 01/31/24 20:05 Completed MAGNESIUM Stat Lab 01/31/24 20:05 Completed TROPONIN Q4H Lab 01/31/24 20:15 Completed TROPONIN Q4H Lab 02/01/24 00:15 Ordered TROPONIN Q4H Lab 02/01/24 04:15 Ordered Medication Summary Generic Name Dose Route Start Last Admin Trade Name Freq PRN Reason Stop Dose Admin Sodium Chloride 1,000 mls @ 100 mls/hr 01/31/24 20:15 01/31/24 20:19 Sodium Chloride 0.9% 1000 Ml IV 03/01/24 20:14 100 mls/hr .Q10H CLAUDY Administration Magnesium Sulfate 1 gm 01/31/24 21:15 Magnesium Sulfate Injection IV 03/01/24 21:14 1XONLY CLAUDY Discontinued Medications Generic Name Dose Route Start Last Admin Trade Name Freq PRN Reason Stop Dose Admin Magnesium Sulfate/Dextrose Confirm 01/31/24 21:17 Magnesium 1 Gm / 100 Ml D5w Administered 01/31/24 21:18 Dose 100 mls @ ud IV .STK-MED ONE Magnesium Sulfate/Dextrose 100 mls @ 200 mls/hr 01/31/24 21:17 01/31/24 21:18 Magnesium 1 Gm / 100 Ml D5w IV 01/31/24 21:46 200 mls/hr STAT ONE Administration Morphine Sulfate 2 mg 01/31/24 20:08 01/31/24 20:20 Morphine Sulfate 2 Mg/Ml Inj IV 01/31/24 20:09 2 mg STAT ONE Administration Morphine Sulfate Confirm 01/31/24 20:18 Morphine Sulfate 2 Mg/Ml Inj Administered 01/31/24 20:19 Dose 2 mg .ROUTE .STK-MED ONE Morphine Sulfate 4 mg 01/31/24 21:11 01/31/24 21:13 Morphine Sulfate 4 Mg/Ml Injection IV 01/31/24 21:12 4 mg STAT ONE Administration Morphine Sulfate Confirm 01/31/24 21:12 Morphine Sulfate 4 Mg/Ml Injection Administered 01/31/24 21:13 Dose 4 mg .ROUTE .STK-MED ONE Ondansetron HCl 4 mg 01/31/24 20:08 01/31/24 20:19 Ondansetron Hcl 4 Mg/2 Ml Vial IV 01/31/24 20:09 4 mg STAT ONE Administration Ondansetron HCl Confirm 01/31/24 20:18 Ondansetron Hcl 4 Mg/2 Ml Vial Administered 01/31/24 20:19 Dose 4 mg .ROUTE .STK-MED ONE Lab/Rad Data: Laboratory Result Diagrams 01/31/24 20:05 01/31/24 20:05 Laboratory Results 01/31/24 01/31/24 01/31/24 Range/Units 20:15 20:05 20:05 WBC 8.7 (4.23-9.07) x10^3/uL RBC 5.53 (4.63-6.08) x10^6/uL Hgb 15.2 (13.7-17.5) g/dL Hct 47.0 (40.1-51.0) % MCV 85.0 (79.0-92.2) fL MCH 27.5 (25.7-32.2) pg MCHC 32.3 (32.3-36.5) g/dL RDW 12.8 (11.6-14.4) % Plt Count 162 L (163-337) x10^3/uL MPV 9.8 (9.4-12.4) fL Gran % 55.9 (34.0-67.9) % Immature Gran % (Auto) 0.5 H (0.001-0.429) % Nucleat RBC Rel Count 0.0 (0.00-0.2) % Eos # (Auto) 0.13 (0.04-0.54) x10^3/uL Immature Gran # (Auto) 0.04 H (0.001-0.031) x10^3u/L Absolute Lymphs (auto) 3.17 (1.32-3.57) x10^3/uL Absolute Monos (auto) 0.47 (0.30-0.82) x10^3/uL Absolute Nucleated RBC 0.00 (0.00-0.012) x10^3u/L Lymphocytes % 36.4 (21.8-53.1) % Monocytes % 5.4 (5.3-12.2) % Eosinophils % 1.5 (0.8-7.0) % Basophils % 0.3 (0.2-1.2) % Absolute Granulocytes 4.87 (1.78-5.38) x10^3/uL Basophils # 0.03 (0.01-0.08) x10^3/uL Sodium 136 (135-145) mmol/L Potassium 3.8 (3.5-5.1) mmol/L Chloride 105 (98-107) mmol/L Carbon Dioxide 22 (22-30) mmol/L Anion Gap 13.2 (5-15) MEQ/L BUN 16 (9-20) mg/dL Creatinine 0.70 (0.66-1.25) mg/dL Estimated GFR 116.5 ML/MIN Glucose 301 H (74-106) mg/dL Calcium 9.5 (8.4-10.2) mg/dL Magnesium 1.5 L (1.6-2.3) mg/dL Troponin I < 0.012 (0.000-0.033) ng/mL - Progress Progress: unchanged Discussed with : So (Spoke with & discussed case with Dr. Castillo([id number]) - obs) Will see patient in: hospital (observation) Counseled pt/family regarding: lab results, diagnosis, rad results Medical Desision Making - Diagnostic Testing Diagnostic test were ordered, analyzed, and reviewed by me: Yes Radiological Interpretation: Teleradiologist Report - Departure Departure Disposition: Observation Clinical Impression: Headache, Decreased sensation L index & thumb, Ivory C5 vertebra, Sclerosis of odontoid process Condition: Stable Critical Care Time: No Referrals: NUHA KERR MD [Primary Care Provider] - Follow up/PCP as directed
[2024-01-31] MEDS ORDERED: Zofran 4 MG/2 ML VIAL ONE (20:18)
[2024-01-31] MEDS ORDERED: Sodium Chloride 0.9% 1000 ML 1,000 ML ONE (20:18)
[2024-01-31] MEDS ORDERED: MORPHINE SULFATE 2 MG INJ ONE (20:18)
[2024-01-31] MEDS: Zofran 4 MG/2 ML VIAL IV ONE (20:19)
[2024-01-31] MEDS: Sodium Chloride 0.9% 1000 ML 1,000 ML IV SCH (20:19)
[2024-01-31] MEDS: MORPHINE SULFATE 2 MG INJ IV ONE (20:20)
[2024-01-31 20:31] LABS: Absolute Neutrophil Ct (ANC) 4.87 x10^3/uL (1.78-5.38); BASOPHIL % 0.3 % (0.2-1.2); Basophil (Absolute #) 0.03 x10^3/uL (0.01-0.08); Eosinophil % 1.5 % (0.8-7.0); Eosinophil (Absolute #) 0.13 x10^3/uL (0.04-0.54); Hemoglobin 15.2 g/dL (13.7-17.5); IMMATURE GRAN # 0.04 x10^3u/L (0.001-0.031); IMMATURE GRAN % 0.5 % (0.001-0.429); Lymphocyte (Absolute #) 3.17 x10^3/uL (1.32-3.57); Lymphocytes % 36.4 % (21.8-53.1); Mean Corpuscular Hemoglobin 27.5 pg (25.7-32.2); Mean Corpuscular Hgb Concent. 32.3 g/dL (32.3-36.5); Mean Platelet Volume 9.8 fL (9.4-12.4); Monocyte (Absolute #) 0.47 x10^3/uL (0.30-0.82); Monocytes % 5.4 % (5.3-12.2); Neutrophil % 55.9 % (34.0-67.9); Platelet Count 162 x10^3/uL (163-337); Red Blood Count 5.53 x10^6/uL (4.63-6.08); Red Cell Distribution Width 12.8 % (11.6-14.4); White Blood Count 8.7 x10^3/uL (4.23-9.07)
[2024-01-31 20:42] LABS: ANION GAP 13.2 MEQ/L (5-15); Calcium 9.5 mg/dL (8.4-10.2); Creatinine 1 0.7 mg/dL (0.66-1.25); EST GLOMERULAR FILTRATION RATE 116.5 ML/MIN; MAGNESIUM 1.5 mg/dL (1.6-2.3); Potassium 3.8 mmol/L (3.5-5.1)
[2024-01-31] MEDS ORDERED: MORPHINE SULFATE 4 MG INJ ONE (21:12)
[2024-01-31] MEDS: MORPHINE SULFATE 4 MG INJ IV ONE (21:13)
[2024-01-31] MEDS ORDERED: Magnesium Sulfate 1 GM/2 ML VIAL IV SCH (21:15)
[2024-01-31] MEDS ORDERED: Magnesium 1 Gm / 100 Ml D5W*** 100 ML IV ONE (21:17)
[2024-01-31] MEDS: Magnesium 1 Gm / 100 Ml D5W*** 100 ML IV ONE (21:18)
--- NOTE | 2024-01-31 23:22 | XRAY ---
CLINICAL HISTORY: decreased sensation of thumb/index COMPARISON: MRI brain 10/20/2022 TECHNIQUE: A CT brain scan was performed without iv contrast administration. coronal and sagittal images are obtained. "One of the following dose reduction techniques was utilized for this exam: Automated exposure control, adjustment of the mA and/or kV according to patient size, and use of iterative reconstruction." FINDINGS: There is a 3 mm hypodense focus seen in the posterior part of the left periventricular internal watershed area. This is likely nonspecific with the other differential of a lacunar infarct/prominent CSF space. otherwise: The rest of visualized brain parenchyma shows a normal appearance. Mayberry-white matter differentiation is maintained. No midline shifts or deformity. No intracerebral or extra axial hematoma. Normal size and configuration of the cerebral ventricles apart from Mild asymmetry of the lateral ventricles left being slightly larger, which is likely a normal variant. Posterior fossa structures cannot be assessed properly due to artifacts. The pituitary gland, the pineal gland, and the optic chiasm are unremarkable. There is osseous proliferation at the posterior occipital midline region in keeping with prominent external occipital protuberance. There is calcific focus seen at the anatomical site of the apical ligament that could represent calcification in the apical ligament, however clinical correlation to rule out old avulsion fracture. The scanned paranasal sinuses are clear. IMPRESSION: 1. No significant radiological interval change identified. 2. No acute intracranial abnormality was identified. Considering the patient's history, if clinical suspicion of an acute infarction persists, an MRI brain using stroke protocol with DWI and ADC sequences is recommended for further evaluation. 3. Tiny hypodense focus in the posterior part of the left posterior periventricular area. This is likely nonspecific with the other differential of a lacunar infarct/prominent CSF space. Electronically Signed by: Isabel Dobbs MD. (01/31/2024 23:18:36 EDT)
--- NOTE | 2024-01-31 23:52 | XRAY ---
CLINICAL HISTORY: decreased sensation L thumb/index COMPARISON: none. TECHNIQUE: A CT cervical spine without IV contrast was performed. "One of the following dose reduction techniques was utilized for this exam: Automated exposure control, adjustment of the mA and/or kV according to patient size, and use of iterative reconstruction." FINDINGS: Reversed cervical lordosis (cervical mild kyphosis). There is increased density with partial sclerosis of the C5 vertebral body. The odontoid process shows sclerosis as well. There is calcification seen in the anatomical site of the apical ligament, which could represent apical ligament calcification, however, old avulsion fracture could not be ruled out, for clinical correlation. 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 Prominent occipital protuberance. The vertebral bodies are normal in height. Mild degenerative changes of the cervical spine with facet joint hypertrophy and small osteophytes. The craniovertebral measures are unremarkable. Intervertebral disc spaces: Normal disc height is noted. No definite acute fractures. No axial cuts on every disc space to properly assess disc herniation. IMPRESSION: 1. Ivory C5 vertebra and sclerosis of odontoid process, differential diagnosis include osteoblastic metastasis, lymphoma, TB, hemangioma or Paget disease of bone, which needs further assessment by contrast-enhanced cervical MRI, PET CT scan. 2. [place] syndrome. 3. Mild degenerative changes of the cervical spine with facet joint hypertrophy and small osteophytes. 4. There is calcification seen in the anatomical site of the apical ligament, which could represent apical ligament calcification, however, old avulsion fracture could not be ruled out, for clinical correlation. 5. Reversed cervical lordosis (cervical mild kyphosis). Electronically Signed by: Isabel Dobbs MD. (01/31/2024 23:47:54 EDT)
[2024-02-01] MEDS ORDERED: MORPHINE SULFATE 4 MG INJ ONE (01:05)
[2024-02-01] MEDS: MORPHINE SULFATE 4 MG INJ IV ONE (01:06)
[2024-02-01] MEDS ORDERED: TYLENOL 325 MG PO PRN (02:35)
[2024-02-01] MEDS ORDERED: Zofran 4 MG/2 ML VIAL IV PRN (02:35)
--- NOTE | 2024-02-01 03:54 | PCM.HP ---
History of Present Illness - Chief Complaint Chief Complaint: left arm pain, left hand numbness Date: 02/01/24 History of Present Illness: 43-year-old man with history of type 2 diabetes and CAD, who presents with left hand numbness and left arm pain. Patient noted onset about 6 days ago of numbness over his left first and second fingers and part of his third finger. In the last day, he is developed radiating tingling and sharp moderate to severe pain from the lateral side of his forearm radiating up into his axilla and neck. He has no other paresthesias. No recent trauma to head or neck. No chest pain, dyspnea, nausea, or diaphoresis. Of note, he had a similar episode with his right arm in October 2022. 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 At that time he had some steroid injections and eventually his paresthesias resolved. He also another episode of right wrist pain that resolved after steroid injection. No prior history of left upper extremity neurologic findings. His pain was controlled after getting morphine in the ER, but it is beginning to recur now. In the ED, he had a CT C-spine that again noted sclerotic bone disease in the C5 vertebra. However, at that time, they were unaware of the prior CT and MRI imaging findings. Recommended contrast-enhanced MRI to help determine underlying cause. Of note, the MRI done October 2022 did not involve contrast. - Review of Systems Constitutional: Chills, No Fever, No Fatigue, No Lethargy Eyes: No Vision Changes, No Double Vision Ears, Nose, & Throat: Nose Congestion, No Throat Pain Respiratory: No Cough, No Short Of Breath Cardiac: No Chest Pain, No Edema, No Palpitations Abdominal/Gastrointestinal: No Abdominal Pain, No Nausea, No Diarrhea Genitourinary Symptoms: No Dysuria, No Frequency Neurological: Parasthesia, Sensory Changes, No Dizziness, No Focal Weakness, No Headache All Other Systems: Reviewed and Negative Medications & Allergies Home Medications: Home Medication List Aspirin EC 81 mg [Ecotrin 81 mg] 81 mg PO DAILY #30 tablet.ec 07/18/18 [Rx Confirmed 02/01/24] Carvedilol 3.125 mg [Coreg 3.125 MG] 3.125 mg PO BID #60 tablet 07/18/18 [Rx Confirmed 02/01/24] Empagliflozin/Metformin HCl [Synjardy Xr 25-1,000 mg Tablet] 1 tab PO DAILY 02/23/20 [History Confirmed 02/01/24] Lisinopril/Hydrochlorothiazide [Lisinopril-Hctz 20-12.5 mg Tab] 1 tab PO DAILY 02/23/20 [History Confirmed 02/01/24] Semaglutide [Ozempic] 2 mg SQ WEEKLY 02/23/20 [History Confirmed 02/01/24] Bempedoic Acid/Ezetimibe [Nexlizet 180-10 mg Tablet] 1 each PO HS 10/19/22 [History Confirmed 02/01/24] Cyclobenzaprine HCl 10 mg [Cyclobenzaprine 10 MG] 10 mg PO TID PRN #30 tablet MDD 3 10/21/22 [Rx Confirmed 02/01/24] Meloxicam 15 mg [Meloxicam 15 MG] 15 mg PO DAILY 01/31/24 [History Confirmed 01/31/24] Rosuvastatin Calcium 40 mg PO HS 02/01/24 [History Confirmed 02/01/24] Allergies/Adverse Reactions: Allergies Allergy/AdvReac Type Severity Reaction Status Date / Time clopidogrel [From Plavix] Allergy Mild Itching Verified 01/31/24 19:36 - Past Medical History Past Medical History: Yes Neurological History: No Pertinent History ENT History: No Pertinent History Cardiac History: Angina, Coronary Artery Disease, High Cholesterol, Hypertension, Myocardial Infarction (AR) Respiratory History: No Pertinent History Endocrine Medical History: Diabetes Type II Musculoskelatal History: Fractures GI Medical History: Gallbladder Disease History: No Pertinent History Pyscho-Social History: No Pertinent History Male Reproductive Disorders: No Pertinent 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 - Past Surgical History Past Surgical History: Yes Neuro Surgical History: No Pertinent History Cardiac History: Cardiac Catheterization, Cardiac Stent Respiratory Surgery: No Pertinent History GI Surgical History: Cholecystectomy Musculskeletal Surgical Hx: Other Other Surgical History: finger reconstruction as a child, 1 stent LAD Significant Family History: no pertinent family hx - Social History Smoking Status: Former smoker Exposure to second hand smoke: No Alcohol: None Drug Use: none - Social Determinants of Health Will the patient participate in the screening: Yes Do you worry about a steady place to live?: No Do you have any problems with any of the following?: No known problems In the past 12 months,have you had to go without utilities?: No Have you or anyone in your house had to go without enough: No Transportation Issues: No Has anyone in your support network made you feel unsafe?: No Does the patient want assistance with any of the above?: No - Physical Exam Vital Signs: Vital Signs - 24 hr Temp Pulse Resp BP BP Pulse Ox 02/01/24 02:35 98.4 F 73 18 152/95 93 L 02/01/24 02:00 78 128/91 95 02/01/24 01:30 83 135/85 94 L 02/01/24 01:00 85 116/80 94 L 02/01/24 00:30 80 132/87 95 02/01/24 00:23 95 02/01/24 00:00 77 16 119/68 97 01/31/24 23:30 75 11 L 119/81 95 01/31/24 23:00 74 16 130/90 95 01/31/24 22:00 85 19 95 01/31/24 21:55 94 L 01/31/24 21:00 93 H 17 128/75 95 01/31/24 20:30 87 12 142/89 95 01/31/24 20:00 109 H 20 136/76 96 01/31/24 19:34 149/87 97 01/31/24 19:22 98 F 90 20 149/87 95 GEN: Lying in bed in no acute distress NEURO: Decreased sensation over first 2 fingers and part of the third finger of the left hand. All movements intact on the left arm. No other focal neurological findings. CV: Regular rate & rhythm, no murmurs, no edema PULM: Clear to auscultation bilaterally, no work of breathing, on room air ABD: Soft, non-distended, normoactive bowel sounds PSYCH: Alert, oriented x3 Results - Labs Lab/Micro Results: Lab Results-Last 24 Hours 01/31/24 01/31/24 01/31/24 Range/Units 20:05 20:05 20:15 WBC 8.7 (4.23-9.07) x10^3/uL RBC 5.53 (4.63-6.08) x10^6/uL Hgb 15.2 (13.7-17.5) g/dL Hct 47.0 (40.1-51.0) % MCV 85.0 (79.0-92.2) fL MCH 27.5 (25.7-32.2) pg MCHC 32.3 (32.3-36.5) g/dL RDW 12.8 (11.6-14.4) % Plt Count 162 L (163-337) x10^3/uL MPV 9.8 (9.4-12.4) fL Gran % 55.9 (34.0-67.9) % Immature Gran % (Auto) 0.5 H (0.001-0.429) % Nucleat RBC Rel Count 0.0 (0.00-0.2) % Eos # (Auto) 0.13 (0.04-0.54) x10^3/uL Immature Gran # (Auto) 0.04 H (0.001-0.031) x10^3u/L Absolute Lymphs (auto) 3.17 (1.32-3.57) x10^3/uL Absolute Monos (auto) 0.47 (0.30-0.82) x10^3/uL Absolute Nucleated RBC 0.00 (0.00-0.012) x10^3u/L Lymphocytes % 36.4 (21.8-53.1) % Monocytes % 5.4 (5.3-12.2) % Eosinophils % 1.5 (0.8-7.0) % Basophils % 0.3 (0.2-1.2) % Absolute Granulocytes 4.87 (1.78-5.38) x10^3/uL Basophils # 0.03 (0.01-0.08) x10^3/uL Sodium 136 (135-145) mmol/L Potassium 3.8 (3.5-5.1) mmol/L Chloride 105 (98-107) mmol/L Carbon Dioxide 22 (22-30) mmol/L Anion Gap 13.2 (5-15) MEQ/L BUN 16 (9-20) mg/dL Creatinine 0.70 (0.66-1.25) mg/dL Estimated GFR 116.5 ML/MIN Glucose 301 H (74-106) mg/dL Calcium 9.5 (8.4-10.2) mg/dL Magnesium 1.5 L (1.6-2.3) mg/dL Troponin I < 0.012 (0.000-0.033) ng/mL 02/01/24 Range/Units 00:29 WBC (4.23-9.07) x10^3/uL RBC (4.63-6.08) x10^6/uL Hgb (13.7-17.5) g/dL Hct (40.1-51.0) % MCV (79.0-92.2) fL MCH (25.7-32.2) pg MCHC (32.3-36.5) g/dL RDW (11.6-14.4) % Plt Count (163-337) x10^3/uL MPV (9.4-12.4) fL Gran % (34.0-67.9) % Immature Gran % (Auto) (0.001-0.429) % Nucleat RBC Rel Count (0.00-0.2) % Eos # (Auto) (0.04-0.54) x10^3/uL Immature Gran # (Auto) (0.001-0.031) x10^3u/L Absolute Lymphs (auto) (1.32-3.57) x10^3/uL Absolute Monos (auto) (0.30-0.82) x10^3/uL Absolute Nucleated RBC (0.00-0.012) x10^3u/L Lymphocytes % (21.8-53.1) % Monocytes % (5.3-12.2) % Eosinophils % (0.8-7.0) % Basophils % (0.2-1.2) % Absolute Granulocytes (1.78-5.38) x10^3/uL Basophils # (0.01-0.08) x10^3/uL Sodium (135-145) mmol/L Potassium (3.5-5.1) mmol/L Chloride (98-107) mmol/L Carbon Dioxide (22-30) mmol/L Anion Gap (5-15) MEQ/L BUN (9-20) mg/dL Creatinine (0.66-1.25) mg/dL Estimated GFR ML/MIN Glucose (74-106) mg/dL Calcium (8.4-10.2) mg/dL Magnesium (1.6-2.3) mg/dL Troponin I < 0.012 (0.000-0.033) ng/mL - Radiology Impressions Radiology Exams & Impressions: Radiology Procedures Category Date Time Status CERVICAL SPINE WO CONTRAST [CT] Stat Exams 01/31/24 20:04 Completed CHEST 2 VIEWS (PA AND LAT) Stat Exams 01/31/24 20:07 Taken HEAD WITHOUT CONTRAST [CT] Stat Exams 01/31/24 20:02 Completed MRI BRAIN WITH CONTRAST [MRI] Stat Exams 02/01/24 02:35 Stop Req MRI C-SPINE WITH CONTRAST [MRI] Routine Exams 02/01/24 02:[address] C-spine sclerosis and density of the C5 vertebra and odontoid process. CT head no acute intracranial abnormality Chest x-ray no infiltrate, effusion, or edema. (Images personally reviewed) Assessment/Plan (1) Cervical radiculopathy Current Visit: No Status: Acute Assessment & Plan: 43-year-old man with history of type 2 diabetes, CAD, and prior cervical radiculopathy, here with left arm numbness and pain consistent with left-sided cervical radiculopathy. ## Left cervical radiculopathy with pain radiating from the neck and numbness in the left hand. Of note, patient had a similar admission in October of last year with right-sided symptoms. He had an MRI at that time that also showed sclerotic changes of the bone but could not definitively rule out metastatic disease. Of note, there does not seem to be significant interval change between the CT C-spine in October [address] C-spine now, although the radiologist does not comment directly as no comparison seems to have been made. 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 Especially with the extra information from the comparison of the noncontrast- enhanced MRI previously. He had previously seen a equipment sales specialist in [place]. Continue PRN Tylenol and morphine Arrange for contrast-enhanced MRI C-spine Discontinue MRI brain, given known history of radiculopathy and no other signs to suggest stroke Educated patient that even with findings of cervical nerve root impingement on the MRI, we would not be able to make any immediate interventions other than pain management, and that he would need to follow-up with his equipment sales specialist for more definitive management. Mostly we would be able to rule out other diagnoses. ## Type 2 diabetes on Synjardy and Ozempic at home. Cover with moderate dose sliding scale insulin here ## CAD with history of AR. However, cardiology and symptoms are not consistent with his prior AR. Continue Coreg 3.125 BID, rosuvastatin 40, aspirin 81 ## Hypertension blood pressure well-controlled Continue lisinopril hydrochlorothiazide, and Coreg CODE STATUS: Full code Prophylaxis: Low risk, encourage ambulation Diet: Diabetic Code(s): M54.12 - RADICULOPATHY, CERVICAL REGION Telemedicine Encounter - Telemedicine Encounter Telemedicine Encounter: The entirety of this encounter was performed via Telemedicine"
[2024-02-01] MEDS ORDERED: MORPHINE SULFATE 2 MG INJ ONE (04:21)
[2024-02-01] MEDS: MORPHINE SULFATE 2 MG INJ IV PRN (04:25)
[2024-02-01] MEDS: Sodium Chloride 0.9% 1000 ML 1,000 ML IV SCH (04:30)
[2024-02-01] MEDS: MORPHINE SULFATE 2 MG INJ IV ONE (04:54)
[2024-02-01 05:48] LABS: Hematocrit 44.8 % (40.1-51.0); Hemoglobin 14.6 g/dL (13.7-17.5); Mean Cell Volume 84.8 fL (79.0-92.2); Mean Corpuscular Hemoglobin 27.7 pg (25.7-32.2); Mean Corpuscular Hgb Concent. 32.6 g/dL (32.3-36.5); Mean Platelet Volume 10.6 fL (9.4-12.4); Platelet Count 173 x10^3/uL (163-337); Red Blood Count 5.28 x10^6/uL (4.63-6.08); Red Cell Distribution Width 13.1 % (11.6-14.4); White Blood Count 9.2 x10^3/uL (4.23-9.07)
[2024-02-01 06:11] LABS: ANION GAP 10.2 MEQ/L (5-15); Calcium 8.6 mg/dL (8.4-10.2); Creatinine 1 0.6 mg/dL (0.66-1.25); EST GLOMERULAR FILTRATION RATE 122.1 ML/MIN; Potassium 3.8 mmol/L (3.5-5.1)
--- NOTE | 2024-02-01 08:39 | XRAY ---
Indication: Left arm pain. Comparison: February 23, 2020 PA/lateral chest less inflated and remains clear. Heart and mediastinal structures within normal limits. Bony thorax intact. Impression: Continued nonacute chest.
[2024-02-01] MEDS: MORPHINE SULFATE 4 MG INJ IV PRN (08:45)
[2024-02-01] MEDS: Coreg 3.125 MG PO SCH (08:47)
[2024-02-01] MEDS: ECOTRIN 81 MG PO SCH (08:47)
[2024-02-01] MEDS: hydroDIURIL 25 MG PO SCH (08:48)
[2024-02-01] MEDS: HUMALOG SQ PRN (08:49)
[2024-02-01] MEDS: Zestril 20 MG PO SCH (08:49)
[2024-02-01] MEDS ORDERED: NON-FORMULARY ITEM (Lisinopril/Hydrochlorothiazide [Lisinopril-Hctz 20-12.5 Mg Tab] 1 EACH PO SCH (10:00)
--- NOTE | 2024-02-01 14:38 | XRAY ---
Indication: Left neck pain with left hand numbness. Sagittal and axial MRI cervical spine performed without contrast using T1 and T2-weighted sequences. Comparison: October 20, 2022 Sagittal images again demonstrates lordotic straightening with mild dextroscoliosis centered at C5. Stable C3-C7 degenerative disc desiccation signal with minimal disc space narrowing. C5 vertebral body demonstrates stable sclerosis. Elsewhere no acute fracture, suspicious bony lesions, or abnormal bone marrow signal. Spinal cord is normal in course and caliber without signal abnormality. Normal appearing craniocervical junction. Axial images at C2-C3 level demonstrates stable left foraminal narrowing due to uncovertebral spurring. No disc herniation or canal stenosis. At C3-C5 levels, grossly stable bilateral foraminal stenosis due to uncovertebral spurring. No disc herniation or canal stenosis. At C5-C6 level, there is grossly stable mild broad-based disc bulge minimally effaces the thecal sac. No disc herniation or canal stenosis. Again bilateral foraminal stenosis due to uncovertebral spurring. At C6-C7 level, there is again right foraminal stenosis due to uncovertebral spurring. No disc herniation or canal stenosis. The C7-T1 level remains unremarkable. Impression: 1. Grossly stable appearing mild multilevel degenerative changes, again greatest at C5-C6. Continue negative for disc herniation or spinal canal stenosis. 2. Stable C5 vertebral body sclerosis. Osteoblastic malignancy not completely excluded in the right clinical setting. 3. Again incidental cervical lordotic straightening and dextroscoliosis.
[2024-02-01] MEDS: NEURONTIN PO SCH (15:00)
[2024-02-01] MEDS ORDERED: Narcan 0.4 MG/ML IV PRN (16:33)
[2024-02-01] MEDS: ULTRAM 50 MG PO PRN (19:53)
[2024-02-01] MEDS: Cyclobenzaprine 10 MG PO PRN (19:53)
[2024-02-01] MEDS ORDERED: NON-FORMULARY ITEM (Rosuvastatin Calcium [Rosuvastatin Calcium] 40 MG Tablet) PO SCH (22:00)
[2024-02-01] MEDS: ZOCOR 20MG PO SCH (22:31)
[2024-02-02 05:16] LABS: Hematocrit 47.2 % (40.1-51.0); Hemoglobin 15.4 g/dL (13.7-17.5); Mean Cell Volume 84.7 fL (79.0-92.2); Mean Corpuscular Hemoglobin 27.6 pg (25.7-32.2); Mean Corpuscular Hgb Concent. 32.6 g/dL (32.3-36.5); Mean Platelet Volume 9.9 fL (9.4-12.4); Platelet Count 166 x10^3/uL (163-337); Red Blood Count 5.57 x10^6/uL (4.63-6.08); Red Cell Distribution Width 13.2 % (11.6-14.4); White Blood Count 9.1 x10^3/uL (4.23-9.07)
[2024-02-02 05:30] LABS: ALBUMIN 3.8 g/dL (3.5-5.0); BILIRUBIN,TOTAL 0.7 mg/dL (0.2-1.3); Calcium 9.4 mg/dL (8.4-10.2); Creatinine 1 0.62 mg/dL (0.66-1.25); EST GLOMERULAR FILTRATION RATE 120.9 ML/MIN; Potassium 3.9 mmol/L (3.5-5.1); Total Protein 6.5 g/dL (6.3-8.2)
--- NOTE | 2024-02-02 11:17 | PCM.DS ---
Discharge Summary Date of Admission: 02/01/24 02:30 Date of Discharge: 02/02/24 Admitting Physician: ROCK COLUNGA MD Primary Care Provider: NUHA KERR Allergies Allergies clopidogrel [From Plavix] Allergy (Mild, Verified 01/31/24 19:36) Itching Hospital Summary - Hospital Course Hospital Course: 43-year-old man with history of type 2 diabetes and CAD. He presented on 02/01/24 to ER with left hand numbness and left arm pain. Patient noted onset about 6 days ago of numbness over his left first and second fingers and part of his third finger. He recently developed radiating tingling and sharp moderate to severe pain from the lateral side of his forearm radiating up into his axilla and neck. He has no other paresthesias. No recent trauma to head or neck. No chest pain, dyspnea, nausea, or diaphoresis. Of note, he had a similar episode with his right arm in October 2022. 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 At that time he had some steroid injections and eventually his paresthesias resolved. He also another episode of right wrist pain that resolved after steroid injection. No prior history of left upper extremity neurologic findings. His pain was controlled after getting morphine in the ER. In the ED, he had a CT C-spine that again noted sclerotic bone disease in the C5 vertebra. However, at that time, they were unaware of the prior CT and MRI imaging findings. Recommended contrast-enhanced MRI to help determine underlying cause. Of note, the MRI done October 2022 did not involve contrast. C-Spine MRI was completed w/o contrast, with contrst to be completed today. He was unable to complete MRI yesteday as he was having increased pain. IV pain meds to be provided prior to exam today. The MRI machine is currently down and being fixed. Hopefully this will be back up this evening. Gabapentin was started yesterday and for radicular pain that radiates from C5, C6 regions down left arm to thumb and index finger. He feels this has helped decrease his pain. Discussed may need increased Op when he f/u with PCP. Discussed referral to ortho spine and he explained he has a specialist and will call and make an appointment himself. He denies CP, SOB, abd. pain. N/V/D. MRI with contrast showed no new concerning findings and pt can f/u OP. - Vitals & Intake/Output Vital Signs: Vital Signs Temperature 97.5 F 02/02/24 07:20 Pulse Rate 77 02/02/24 07:20 Respiratory Rate 18 02/02/24 07:20 Blood Pressure 125/69 02/02/24 07:20 O2 Sat by Pulse Oximetry 97 02/02/24 07:20 Intake & Output: Intake & Output 01/30/24 01/31/24 02/01/24 02/02/24 11:59 11:59 11:59 11:59 Intake Total 240 3320 Balance 240 3320 Weight 114.9 kg - Lab Result Diagrams: 02/02/24 04:23 02/02/24 04:23 Lab Results-Last 24 Hrs: Lab Results-Last 24 Hours 02/01/24 02/01/24 02/01/24 Range/Units 11:16 16:16 22:10 WBC (4.23-9.07) x10^3/uL RBC (4.63-6.08) x10^6/uL Hgb (13.7-17.5) g/dL Hct (40.1-51.0) % MCV (79.0-92.2) fL MCH (25.7-32.2) pg MCHC (32.3-36.5) g/dL RDW (11.6-14.4) % Plt Count (163-337) x10^3/uL MPV (9.4-12.4) fL Sodium (135-145) mmol/L Potassium (3.5-5.1) mmol/L Chloride (98-107) mmol/L Carbon Dioxide (22-30) mmol/L Anion Gap (5-15) MEQ/L BUN (9-20) mg/dL Creatinine (0.66-1.25) mg/dL Estimated GFR ML/MIN Glucose (74-106) mg/dL POC Glucometer 275 H 282 H 245 H (74 to 106) mg/dL Calcium (8.4-10.2) mg/dL Total Bilirubin (0.2-1.3) mg/dL AST (17-59) U/L ALT (0-50) U/L Alkaline Phosphatase (38-126) U/L Serum Total Protein (6.3-8.2) g/dL Albumin (3.5-5.0) g/dL 02/02/24 02/02/24 02/02/24 Range/Units 04:23 04:23 07:12 WBC 9.1 H (4.23-9.07) x10^3/uL RBC 5.57 (4.63-6.08) x10^6/uL Hgb 15.4 (13.7-17.5) g/dL Hct 47.2 (40.1-51.0) % MCV 84.7 (79.0-92.2) fL MCH 27.6 (25.7-32.2) pg MCHC 32.6 (32.3-36.5) g/dL RDW 13.2 (11.6-14.4) % Plt Count 166 (163-337) x10^3/uL MPV 9.9 (9.4-12.4) fL Sodium 135 (135-145) mmol/L Potassium 3.9 (3.5-5.1) mmol/L Chloride 104 (98-107) mmol/L Carbon Dioxide 24 (22-30) mmol/L Anion Gap 12.0 (5-15) MEQ/L BUN 15 (9-20) mg/dL Creatinine 0.62 L (0.66-1.25) mg/dL Estimated GFR 120.9 ML/MIN Glucose 200 H (74-106) mg/dL POC Glucometer 221 H (74 to 106) mg/dL Calcium 9.4 (8.4-10.2) mg/dL Total Bilirubin 0.70 (0.2-1.3) mg/dL AST 54 (17-59) U/L ALT 114 H (0-50) U/L Alkaline Phosphatase 115 (38-126) U/L Serum Total Protein 6.5 (6.3-8.2) g/dL Albumin 3.8 (3.5-5.0) g/dL Micro Results-Entire Visit: Accuchecks Date 02/02/24 Date 02/01/24 Date 02/01/24 Time 04:25 Time 11:35 - Radiology Exams Ordered Rad Exams-Entire Visit: Radiology Procedures Category Date Time Status CERVICAL SPINE WO CONTRAST [CT] Stat Exams 01/31/24 20:04 Completed CHEST 2 VIEWS (PA AND LAT) Stat Exams 01/31/24 20:07 Completed HEAD WITHOUT CONTRAST [CT] Stat Exams 01/31/24 20:02 Completed MRI BRAIN WITH CONTRAST [MRI] Urgent Exams 02/02/24 08:00 Ordered MRI C-SPINE W/O CONTRAST [MRI] Routine Exams 02/01/24 02:35 Completed Discharge Exam General Appearance: no apparent distress, alert Neurologic Exam: alert, oriented x 3, cooperative, normal mood/affect, nml cere bellar function, sensation nml, No motor deficits Eye Exam: PERRL, EOMI, eyes nml inspection Ears, Nose, Throat Exam: normal ENT inspection, pharynx normal, moist mucous membranes Neck Exam: normal inspection, non-tender, supple, full range of motion Respiratory Exam: normal breath sounds, lungs clear, No respiratory distress Cardiovascular Exam: regular rate/rhythm, normal heart sounds Gastrointestinal/Abdomen Exam: soft, No tenderness, No mass Male Genitalia Exam: deferred Rectal Exam: deferred Back Exam: normal inspection, normal range of motion, No CVA tenderness, No vertebral tenderness Extremity Exam: normal inspection, normal range of motion, parasthesia (pain, and numbness left arm to index and thumb) Skin Exam: normal color, warm, dry Final Diagnosis/Problem List - Final Discharge Diagnosis/Problem (1) Cervical radiculopathy Current Visit: No Status: Acute Assessment & Plan: with pain radiating from the neck and numbness in the left hand. Of note, patient had a similar admission in October of last year with right-sided symptoms. He had an MRI at that time that also showed sclerotic changes of the bone but could not definitively rule out metastatic disease. Of note, there does not seem to be significant interval change between the CT C-spine in October [address] C-spine now, although the radiologist does not comment directly as no comparison seems to have been made. 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 Especially with the extra information from the comparison of the noncontrast-enhanced MRI previously. He had previously seen a adult health clinical nurse specialist in [place]. Continue PRN Tylenol - IV morphine stopped - Gabapentin started may need increased OP Contrast-enhanced MRI C-spine and brain - Morphine IV x1 dose prior to MRI - Pt states he will make f/u Op appointment with Ortho spine as he already has a specialist he see's. -CT cervical spine with contrast 02/01 Impression: 1. Stable sclerotic odontoid process/C5 vertebral body. There is a CTA neck exam from October 19, 2022 demonstrating similar appearance. Negative contrast exam. 2. Stable multilevel degenerative changes, lordotic straightening, and levoscoliosis Code(s): M54.12 - RADICULOPATHY, CERVICAL REGION (2) CAD (coronary artery disease) Current Visit: Yes Status: Chronic Assessment & Plan: with history of CT. However, cardiology and symptoms are not consistent with his prior CT. Continue Coreg 3.125 BID, rosuvastatin 40, aspirin 81 Code(s): I25.10 - ATHSCL HEART DISEASE OF [place] CORONARY ARTERY W/O ANG PCTRS (3) HTN (hypertension) Current Visit: Yes Status: Chronic Assessment & Plan: blood pressure well-controlled Continue lisinopril hydrochlorothiazide, and Coreg Code(s): I10 - ESSENTIAL (PRIMARY) HYPERTENSION (4) Obesity (BMI 30-39.9) Current Visit: Yes Status: Acute Assessment & Plan: - advised ADA diet and exercise control Code(s): E66.9 - OBESITY, UNSPECIFIED (5) Diabetes mellitus Current Visit: No Status: Chronic Assessment & Plan: on Synjardy and Ozempic at home. Cover with moderate dose sliding scale insulin here - A1C 11.52 - uncontrolled - will need close OP f/u for better control - ADA diet Code(s): E11.9 - TYPE 2 DIABETES MELLITUS WITHOUT COMPLICATIONS - Discharge Discharge Date: 02/02/24 Disposition: Home, Self-Care Condition: Stable Prescriptions: New Gabapentin [Neurontin ] 300 mg PO TID 7 Days #21 cap Continue Carvedilol 3.125 mg [Coreg 3.125 MG] 3.125 mg PO BID #60 tablet Aspirin EC 81 mg [Ecotrin 81 mg] 81 mg PO DAILY #30 tablet.ec Semaglutide [Ozempic] 2 mg SQ WEEKLY Lisinopril/Hydrochlorothiazide [Lisinopril-Hctz 20-12.5 mg Tab] 1 tab PO DAILY Empagliflozin/Metformin HCl [Synjardy Xr 25-1,000 mg Tablet] 1 tab PO DAILY Bempedoic Acid/Ezetimibe [Nexlizet 180-10 mg Tablet] 1 each PO HS Cyclobenzaprine HCl 10 mg [Cyclobenzaprine 10 MG] 10 mg PO TID PRN #30 tablet MDD 3 Meloxicam 15 mg [Meloxicam 15 MG] 15 mg PO DAILY Rosuvastatin Calcium 40 mg PO HS Follow up with: NUHA KERR MD [Primary Care Provider] -
[2024-02-02 11:18] VITALS: BP 131/84; PULSE 69; RESP 19; TEMP 97.8; O2SAT 94
[2024-02-02] MEDS: MORPHINE SULFATE 2 MG INJ IM ONE (12:31)
--- NOTE | 2024-02-02 14:20 | XRAY ---
Indication: [place] C5 and sclerosis odontoid. Sagittal and axial MRI cervical spine performed using postcontrast T1 weighted sequences. 20 cc Dotarem contrast used. Comparison: MRI cervical spine without contrast one day earlier. Stable cervical lordotic straightening, mild levoscoliosis, minimal C3-C7 disc space narrowing, and sclerotic odontoid process/C5 vertebral body. Disc levels demonstrate stable C5-6 mild broad-based disc bulge and C2-C5 foraminal narrowing/stenosis. Spinal cord is normal in course and caliber without signal abnormality. No abnormal intra/extra thecal enhancement or abnormal bony enhancement. Impression: 1. Stable sclerotic odontoid process/C5 vertebral body. There is a CTA neck exam from October 19, 2022 demonstrating similar appearance. Negative contrast exam. 2. Stable multilevel degenerative changes, lordotic straightening, and levoscoliosis.
== END 2024-02-02 16:00 | disposition home health service (06) ==
LOC: ED 19:22 → MED SURG 02-01 02:30
PROVIDERS: ADMIT Internal Medicine; ATTEND Internal Medicine
DX: M54.12 Radiculopathy, cervical region (principal); I25.10 Atherosclerotic heart disease of native coronary artery without angina pectoris; I10 Essential (primary) hypertension; E66.9 Obesity, unspecified; E11.9 Type 2 diabetes mellitus without complications; E78.5 Hyperlipidemia, unspecified; I25.2 Old myocardial infarction; Z79.899 Other long term (current) drug therapy
CPT/HCPCS: 36000; 36415; 70450; 71046; 72125; 72141; 72142; 80048; 80053; 82947; 83036; 83735; 84484; 85025; 85027; 93005; 96374; 96375; 96376; 99285; Q3014; 93268; 96365; J1817; J2270; J2405; J3475; A9270-GY; G0378